=== PATIENT | female | born 1970 | race American Indian/Alaskan Native ===

== ENCOUNTER 2016-10-06 10:33 | Inpatient (IN) | payer MEDICAID ==
[2016-10-06 10:33] VITALS: BMI 22.4
[2016-10-06] MEDS ORDERED: Sodium Chloride 0.9% 1,000 ML IV STA ×2 (11:35→13:48)
[2016-10-06] MEDS ORDERED: Insulin Regular 1 UNITS/0.01 ML ML IVP STA (11:40)
--- NOTE | 2016-10-06 11:49 | ED PDOC ---
Arrival/HPI - General Chief Complaint: High Blood Sugar Time Seen by Provider: 10/06/16 11:26 Historian: Patient - History of Present Illness Narrative History of Present Illness (Text): 10/06/16 11:50 45 y/o female, pmh including dm, c/o out of her DM medications for the past 3 days. Pt. stated that she feels well today, no abdominal pain or fatigue, no dizziness, out of her medication for metformin 1000mg/table bid, glizide 5mg po bid, januvia 50mg/tablet qd. Pt. stated that she feels perfectly well other than feeling fatigue and thirsty with no other medical or psychological complaints, no chest pain or shortness of breath, no palpitation, no night sweat , no other medical or psychological complaints. Past Medical History - Provider Review Nursing Documentation Reviewed: Yes - Past History Past History: No Previous - Infectious Disease Hx of Infectious Diseases: None - Tetanus Immunization Tetanus Immunization: Unknown - Cardiac Hx Cardiac Disorders: No - Pulmonary Hx Respiratory Disorders: No - Neurological Hx Neurological Disorder: No - HEENT Hx HEENT Disorder: No - Renal Hx Renal Disorder: No - Endocrine/Metabolic Hx Endocrine Disorders: Yes Hx Diabetes Mellitus Type 2: Yes (NIDDM) - Hematological/Oncological Hx Blood Disorders: No - Integumentary Hx Dermatological Disorder: No - Musculoskeletal/Rheumatological Hx Musculoskeletal Disorders: No - Gastrointestinal Hx Gastrointestinal Disorders: No - Genitourinary/Gynecological Hx Genitourinary Disorders: No - Psychiatric Hx Psychophysiologic Disorder: No Hx Substance Use: No - Past Surgical History Past Surgical History: No Previous - Surgical History Hx Section: Yes - Anesthesia Hx Anesthesia: Yes Hx Anesthesia Reactions: No Hx Malignant Hyperthermia: No - Suicidal Assessment Feels Threatened In Home Enviroment: No Family/Social History - Physician Review Nursing Documentation Reviewed: Yes Family/Social History: Unknown Family HX Smoking Status: Never Smoked Hx Alcohol Use: No Hx Substance Use: No Hx Substance Use Treatment: No Allergies/Home Meds Allergies/Adverse Reactions: Allergies No Known Allergies Allergy (Verified 10/06/16 11:13) Home Medications: Home Meds Medication Instructions Recorded Confirmed GlipiZIDE [Glucotrol] 5 mg PO BID 10/06/16 10/06/16 MetFORMIN [glucoPHAGE] 1 tab PO BID 10/06/16 10/06/16 Review of Systems - Review of Systems Constitutional: absent: Fatigue, Fevers Eyes: absent: Vision Changes ENT: absent: Hearing Changes Respiratory: absent: SOB, Cough Cardiovascular: absent: Chest Pain Gastrointestinal: absent: Abdominal Pain, Diarrhea, Nausea, Vomiting Musculoskeletal: absent: Arthralgias, Back Pain, Neck Pain, Joint Swelling, Myalgias Skin: absent: Rash, Pruritis, Skin Lesions, Laceration, Abscess, Ulcer Psychiatric: absent: Anxiety, Depression, Suicidal Ideation Physical Exam Vital Signs Reviewed: Yes Vital Signs Temp Pulse Resp BP Pulse Ox 10/06/16 16:01 79 18 116/78 99 10/06/16 16:00 98.7 F 90 20 128/90 100 10/06/16 14:24 89 18 114/75 98 10/06/16 13:25 97 H 18 112/71 98 10/06/16 12:32 100 H 18 115/79 98 10/06/16 11:15 98.6 F 105 H 16 117/82 99 Temperature: Afebrile Blood Pressure: Normal Pulse: Tachycardic Respiratory Rate: Normal Appearance: Positive for: Well-Appearing, Non-Toxic, Comfortable Pain Distress: None Mental Status: Positive for: Alert and Oriented X 3 Finger Stick Blood Glucose: 498 - Systems Exam Head: Present: Atraumatic, Normocephalic Pupils: Present: PERRL Extroacular Muscles: Present: EOMI Conjunctiva: Present: Normal Mouth: Present: Moist Mucous Membranes Neck: Present: Normal Range of Motion Respiratory/Chest: Present: Clear to Auscultation, Good Air Exchange. No: Respiratory Distress, Accessory Muscle Use Cardiovascular: Present: Regular Rate and Rhythm, Normal S1, S2, Other (no pedal edema). No: Murmurs Abdomen: Present: Normal Bowel Sounds. No: Tenderness, Distention, Peritoneal Signs Back: Present: Normal Inspection Upper Extremity: Present: Normal Inspection. No: Cyanosis, Edema Lower Extremity: Present: Normal Inspection. No: Edema Neurological: Present: GCS=15, CN II-XII Intact, Speech Normal, Motor Func Grossly Intact, Gait Normal, Memory Normal Skin: Present: Warm, Dry, Normal Color. No: Rashes Psychiatric: Present: Alert, Oriented x 3, Normal Insight, Normal Concentration Medical Decision Making ED Course and Treatment: 10/06/16 11:41 -labs -IVF/insulin -observe and reassess 10/06/16 14:21 -Labs are non-significant except Na 122, Glucose >500. There is no signs of DKA -EKG: NSR @ 88 BPM, no ST elevation or depression, no T wave inversion, no heart block -Chest x-ray show no active disease -Pt. stated that her previous hgba1c 11.2 which never offer insulin -pt. will need admission for the uncontrolled DM and hyponatremia -I discussed with Dr. Jake Hernadez, discussed about the case/labs and she will admit the patient. -I discussed with DR. Haro about the case/labs, he will put in the admission order. - Lab Interpretations Lab Results: 10/06/16 11:51 10/06/16 11:51 Lab Results 10/06/16 14:49: POC Glucose (mg/dL) 395 H 10/06/16 14:30: Hemoglobin A1c 15.3 H 10/06/16 13:33: POC Glucose (mg/dL) 433 H* 10/06/16 12:53: pO2 48, VBG pH 7.25 L, VBG pCO2 59.0, VBG HCO3 25.9, VBG Total CO2 27.7, VBG O2 Sat (Calc) 81.4 H, VBG Base Excess -2.4 L, VBG Potassium 4.4, Glucose 403 H*, Lactate 3.0 H, FiO2 21.0, Sodium 128.0 L, Chloride 96.0 L, Venous Blood Potassium 4.4 10/06/16 12:49: POC Glucose (mg/dL) 354 H 10/06/16 11:51: Sodium 122 L, Potassium 4.3, Chloride 88 L, Carbon Dioxide 26, Anion Gap 12, BUN 20, Creatinine 0.8, Est GFR ( Amer) > 60, Est GFR (Non- Af Amer) > 60, Random Glucose 642 H*, Calcium 9.2, Total Bilirubin 0.5, AST 20, ALT 37, Alkaline Phosphatase 102, Total Protein 7.2, Albumin 3.9, Globulin 3.3, Albumin/Globulin Ratio 1.2 10/06/16 11:51: WBC 9.4 D, RBC 4.48, Hgb 13.0, Hct 36.5, MCV 81.5, MCH 29.0, MCHC 35.6, RDW 12.7, Plt Count 329, MPV 11.5 H, Gran % 66.7, Lymph % (Auto) 26.6 , [place] % (Auto) 4.8, Eos % (Auto) 1.3 L, Baso % (Auto) 0.6, Gran # 6.23, Lymph # 2.5, [place] # 0.5, Eos # 0.1, Baso # 0.06 10/06/16 11:49: POC Glucose (mg/dL) > 500 H* I have reviewed the lab results: Yes Interpretation: Abnormal lab values (Na 122, Glucose >500) - RAD Interpretation Radiology Orders: 10/06/16 14:20 CHEST PORTABLE [RAD] Stat IMPRESSION: No focal consolidation, significant pleural effusion, or definite pneumothorax identified. Cotton Machine Operator: Radiologist - EKG Interpretation EKG Interpretation (Text): 10/06/16 14:35 NSR @ 88 BPM, no ST elevation or depression, no T wave inversion, no heart block Interpreted by ED Physician: Yes Type: 12 lead EKG - Medication Orders Current Medication Orders: Sodium Chloride (Sodium Chloride 0.9%) 100 mls @ 100 mls/hr IV .Q1H LILY Last Admin: 10/07/16 03:02 Dose: 100 mls/hr Insulin Human Regular (Humulin R High) 0 units SC ACHS LILY PRN Reason: Protocol Last Admin: 10/07/16 08:39 Dose: 12 units Pantoprazole Sodium (Protonix Ec Tab) 40 mg PO 0730 LILY Last Admin: 10/07/16 08:39 Dose: 40 mg Discontinued Medications Sodium Chloride (Sodium Chloride 0.9%) 1,000 mls @ 999 mls/hr IV .Q1H1M STA Stop: 10/06/16 12:35 Last Admin: 10/06/16 11:47 Dose: 999 mls/hr Insulin Human Regular (Humulin R) 8 units IVP STAT STA Stop: 10/06/16 11:41 Last Admin: 10/06/16 11:49 Dose: 8 units Comments: FS 500 Insulin Human Regular (Humulin R High) 0 units SC ACHS LILY PRN Reason: Protocol Insulin Human Regular (Humulin R) 3 units SC ONCE ONE Stop: 10/07/16 02:54 Last Admin: 10/07/16 03:01 Dose: 3 units - PA / BAR MACHINE OPERATOR MULTIPLE SPINDLE / Resident Statement MD/DO has reviewed & agrees with the documentation as recorded. Disposition/Present on Arrival - Present on Arrival Any Indicators Present on Arrival: No History of DVT/PE: No History of Uncontrolled Diabetes: No Urinary Catheter: No History of Decub. Ulcer: No History Surgical Site Infection Following: None - Disposition Have Diagnosis and Disposition been Completed?: Yes Diagnosis: Hyperglycemia due to type 2 diabetes mellitus, Encounter for medication refill , Hyponatremia Disposition: HOSPITALIZED Disposition Time: 14:23 Patient Plan: Admission Patient Problems: Current Active Problems Problem Status Onset Encounter for medication refill Acute Hyperglycemia due to type 2 diabetes mellitus Acute Hyponatremia Acute Condition: GOOD
[2016-10-06 11:52] LABS: ADD MANUAL DIFF? NO
[2016-10-06 12:08] LABS: ALB/GLOB RATIO 1.2 (1.1-1.8); ALKALINE PHOSPHATASE 102 U/L (38-133); ALT/SGPT 37 U/L (7-56); AST/SGOT 20 U/L (15-39); BILIRUBIN,TOTAL 0.5 mg/dL (0.2-1.3); BLOOD UREA NITROGEN 20 mg/dL (7-21); CALCIUM 9.2 mg/dL (8.4-10.5); CARBON DIOXIDE 26 mmol/L (21-33); CHLORIDE 88 mmol/L (95-110); GFR AFRICAN-AMERICAN > 60; POTASSIUM 4.3 mmol/L (3.6-5.0); SODIUM 122 mmol/L (132-148); TOTAL PROTEIN 7.2 g/dL (5.8-8.3)
[2016-10-06 12:27] LABS: GLUCOSE,RANDOM 642 mg/dL (70-110)
[2016-10-06 12:41] LABS: BASO # 0.06 K/mm3 (0.0-2.0); BASO % 0.6 % (0.0-3.0); EOS # 0.1 (0.0-0.7); EOS % 1.3 % (1.5-5.0); GRAN # 6.23 (1.4-6.5); GRAN % 66.7 % (50.0-68.0); HEMATOCRIT 36.5 % (36.0-48.0); LYMPH # 2.5 (1.2-3.4); LYMPH % 26.6 % (22.0-35.0); MEAN CELL VOLUME 81.5 fL (80.0-105.0); MEAN CORPUSCULAR HGB CONC 35.6 g/dl (31.0-37.0); MEAN PLATELET VOLUME 11.5 fl (7.0-11.0); MONO # 0.5 (0.1-0.6); MONO % 4.8 % (1.0-6.0); PLATELET COUNT 329 10^3/uL (120.0-450.0); RED CELL DISTRIBUTION WIDTH 12.7 % (11.5-14.5); WHITE BLOOD COUNT 9.4 10^3/ul (4.5-11.0)
[2016-10-06 12:56] LABS: VENOUS BLOOD GAS BASE EXCESS -2.4 mmol/L (0.0-2.0); VENOUS BLOOD PH 7.25 (7.32-7.43)
--- NOTE | 2016-10-06 15:18 | CP.PCM.HP ---
<Zhnag Duran - Last Filed: 10/06/16 20:20> History of Present Illness - History of Present Illness History of Present Illness: 45F with pmh of DM2 presented c/o fatigue and mild numbness/tingling of extremities 2/2 to hyperglycemia. Pt. ran out of her meds 3 days ago. Pt. recently lost insurance and trying to get new insurance and was unable to acquire new medications. Pt. has no other complaints and denies chest pain, difficulty breathing, N/V/D/C, any GI/ symptoms, or back pain. PMD:previously Dr. Genoveva Hill PMH: DM, Gestational DM in 1999 PSH: in 1999 FH: sig for DM and HTN SH: lives with her children works at [employer], [employer], and [employer] denies recent travel Tob: denies Alc: socially Drug: bora All: NKDA Meds: Metformin 1000mg BID Glipizide 5mg BID Januvia 50mg QID Present on Admission - Present on Admission Any Indicators Present on Admission: Yes History of DVT/PE: No History of Uncontrolled Diabetes: Yes Urinary Catheter: No Decubitus Ulcer Present: No Review of Systems - Constitutional Constitutional: absent: Anorexia, Chills, Daytime Sleepiness, Fever, Headache - EENT Eyes: Change in Vision (mild changes when she is hyperglycemic) Ears: absent: Decreased Hearing, Ear Pain Nose/Mouth/Throat: absent: Dysphagia, Sore Throat, Neck Pain - Cardiovascular Cardiovascular: absent: Chest Pain, Chest Pain at Rest, Chest Pain with Activity , Dyspnea, Edema, Irregular Heart Rhythm, Pain Radiating to Arm/Neck/Jaw, Palpitations, Pedal Edema, Radiating Pain, Syncope - Respiratory Respiratory: Cough (mild unproductive). absent: Dyspnea - Gastrointestinal Gastrointestinal: absent: Abdominal Pain, Constipation, Diarrhea, Heartburn, Nausea, Vomiting - Genitourinary Genitourinary: absent: Dysuria, Flank Pain, Hematuria, Pyuria, Nocturia, Urinary Incontinence - Musculoskeletal Musculoskeletal: Numbness, Tingling. absent: Abnormal Gait, Arthralgias, Back Pain, Joint Swelling - Integumentary Integumentary: Rash - Neurological Neurological: Numbness, Tingling. absent: Dizziness, Focal Weakness, Headaches , Syncope - Psychiatric Psychiatric: absent: Behavioral Changes, Confusion, Depression, Irritability - Endocrine Endocrine: Fatigue. absent: Cold Intolorance, Heat Intolorance, Palpitations, Polydipsia, Polyphagia, Polyuria Past Patient History - Infectious Disease Hx of Infectious Diseases: None - Tetanus Immunizations Tetanus Immunization: Unknown - Past Social History Smoking Status: Never Smoked Chewing Tobacco Use: No Cigar Use: No Alcohol: Social Drugs: Denies - CARDIAC Hx Cardiac Disorders: No - PULMONARY Hx Respiratory Disorders: No - NEUROLOGICAL Hx Neurological Disorder: No - HEENT Hx HEENT Problems: No - RENAL Hx Chronic Kidney Disease: No - ENDOCRINE/METABOLIC Hx Endocrine Disorders: Yes Hx Diabetes Mellitus Type 2: Yes (NIDDM) - HEMATOLOGICAL/ONCOLOGICAL Hx Blood Disorders: No - INTEGUMENTARY Hx Dermatological Problems: No - MUSCULOSKELETAL/RHEUMATOLOGICAL Hx Musculoskeletal Disorders: No - GASTROINTESTINAL Hx Gastrointestinal Disorders: No - GENITOURINARY/GYNECOLOGICAL Hx Genitourinary Disorders: No - PSYCHIATRIC Hx Psychophysiologic Disorder: No Hx Substance Use: No - SURGICAL HISTORY Hx Section: Yes - ANESTHESIA Hx Anesthesia: Yes Hx Anesthesia Reactions: No Hx Malignant Hyperthermia: No Meds Home Medications: Home Medication List Medication Instructions Recorded Confirmed Type GlipiZIDE [Glucotrol] 5 mg PO BID #28 10/08/16 Rx Insulin Human NPH/Reg [humulin 5 units SC Q12 14 Days 10/08/16 Rx 70/30 70 U/Ml-30 U/Ml 10 Ml] MetFORMIN [glucoPHAGE] 1 tab PO BID #28 10/08/16 Rx SITagliptin [Januvia] 50 mg PO DAILY #14 tab 10/08/16 Rx Allergies/Adverse Reactions: Allergies Allergy/AdvReac Type Severity Reaction Status Date / Time No Known Allergies Allergy Verified 10/06/16 11:13 Physical Exam - Constitutional Appears: Non-toxic, No Acute Distress - Head Exam Head Exam: ATRAUMATIC, NORMOCEPHALIC - Eye Exam Eye Exam: EOMI - ENT Exam ENT Exam: Mucous Membranes Moist - Neck Exam Neck exam: Positive for: Full Rom. Negative for: Lymphadenopathy, Thyromegaly - Respiratory Exam Respiratory Exam: Clear to Auscultation Bilateral, NORMAL BREATHING PATTERN. absent: Rhonchi, Wheezes - Cardiovascular Exam Cardiovascular Exam: REGULAR RHYTHM, RRR, +S1, +S2. absent: JVD - GI/Abdominal Exam GI & Abdominal Exam: Normal Bowel Sounds, Soft. absent: Tenderness - Extremities Exam Extremities exam: Positive for: normal inspection - Back Exam Back exam: NORMAL INSPECTION - Neurological Exam Neurological exam: Alert, CN II-XII Intact, Normal Gait, Oriented x3, Reflexes Normal - Psychiatric Exam Psychiatric exam: Normal Affect, Normal Mood - Skin Skin Exam: Dry, Intact, Normal Color, Warm Results - Vital Signs Recent Vital Signs: Last Vital Signs Temp 98.6 F 10/06/16 11:15 Pulse 89 10/06/16 14:24 Resp 18 10/06/16 14:24 BP 114/75 10/06/16 14:24 Pulse Ox 98 10/06/16 14:24 - Labs Result Diagrams: 10/06/16 11:51 10/06/16 11:51 Labs: Laboratory Results - last 24 hr 10/06/16 10/06/16 10/06/16 11:49 11:51 11:51 WBC 9.4 D RBC 4.48 Hgb 13.0 Hct 36.5 MCV 81.5 MCH 29.0 MCHC 35.6 RDW 12.7 Plt Count 329 MPV 11.5 H Gran % 66.7 Lymph % (Auto) 26.6 [place] % (Auto) 4.8 Eos % (Auto) 1.3 L Baso % (Auto) 0.6 Gran # 6.23 Lymph # 2.5 [place] # 0.5 Eos # 0.1 Baso # 0.06 pO2 VBG pH VBG pCO2 VBG HCO3 VBG Total CO2 VBG O2 Sat (Calc) VBG Base Excess VBG Potassium Glucose Lactate FiO2 Sodium 122 L Potassium 4.3 Chloride 88 L Carbon Dioxide 26 Anion Gap 12 BUN 20 Creatinine 0.8 Est GFR ( Amer) > 60 Est GFR (Non-Af Amer) > 60 POC Glucose (mg/dL) > 500 H* Random Glucose 642 H* Calcium 9.2 Total Bilirubin 0.5 AST 20 ALT 37 Alkaline Phosphatase 102 Total Protein 7.2 Albumin 3.9 Globulin 3.3 Albumin/Globulin Ratio 1.2 Venous Blood Potassium 10/06/16 10/06/16 10/06/16 12:49 12:53 13:33 WBC RBC Hgb Hct MCV MCH MCHC RDW Plt Count MPV Gran % Lymph % (Auto) [place] % (Auto) Eos % (Auto) Baso % (Auto) Gran # Lymph # [place] # Eos # Baso # pO2 48 VBG pH 7.25 L VBG pCO2 59.0 VBG HCO3 25.9 VBG Total CO2 27.7 VBG O2 Sat (Calc) 81.4 H VBG Base Excess -2.4 L VBG Potassium 4.4 Glucose 403 H* Lactate 3.0 H FiO2 21.0 Sodium 128.0 L Potassium Chloride 96.0 L Carbon Dioxide Anion Gap BUN Creatinine Est GFR ( Amer) Est GFR (Non-Af Amer) POC Glucose (mg/dL) 354 H 433 H* Random Glucose Calcium Total Bilirubin AST ALT Alkaline Phosphatase Total Protein Albumin Globulin Albumin/Globulin Ratio Venous Blood Potassium 4.4 10/06/16 14:49 WBC RBC Hgb Hct MCV MCH MCHC RDW Plt Count MPV Gran % Lymph % (Auto) [place] % (Auto) Eos % (Auto) Baso % (Auto) Gran # Lymph # [place] # Eos # Baso # pO2 VBG pH VBG pCO2 VBG HCO3 VBG Total CO2 VBG O2 Sat (Calc) VBG Base Excess VBG Potassium Glucose Lactate FiO2 Sodium Potassium Chloride Carbon Dioxide Anion Gap BUN Creatinine Est GFR ( Amer) Est GFR (Non-Af Amer) POC Glucose (mg/dL) 395 H Random Glucose Calcium Total Bilirubin AST ALT Alkaline Phosphatase Total Protein Albumin Globulin Albumin/Globulin Ratio Venous Blood Potassium Assessment & Plan - Assessment and Plan (Free Text) Assessment: 45F with fatigue 2/2 hyperglycemia. Plan: Hyperglycemia -ISS High -will switch to Humalin tomorrow -HgA1c -IV fluids 100mls/hr -Diabetic Education -received 8u in the ED and 1 L of NS -GAP WNL -Corrected Na is 131 -VBG -P02 48 -pH 7.25 -PCO2 59 -HCO3 25.9 -EKG NSR @[address] changes, needs official read -CXR No Active Disease, no cardiomegaly, needs official read -Diabetic Diet PPX -DVT AE Hose -GI Protonix 40mg daily -Activity as tolerated - Date & Time Date: 10/06/16 Time: 04:00 <Gonsalo Hernadez B - Last Filed: 10/08/16 13:53> Results - Vital Signs Recent Vital Signs: Last Vital Signs Temp 97.8 F 10/07/16 08:43 Pulse 85 10/07/16 08:43 Resp 20 10/07/16 08:43 BP 126/88 10/07/16 08:43 Pulse Ox 100 10/07/16 08:43 - Labs Result Diagrams: 10/08/16 07:30 10/08/16 07:30 Labs: Laboratory Results - last 24 hr 10/06/16 10/06/16 10/06/16 16:50 19:09 21:45 WBC RBC Hgb Hct MCV MCH MCHC RDW Plt Count MPV Gran % Lymph % (Auto) [place] % (Auto) Eos % (Auto) Baso % (Auto) Gran # Lymph # [place] # Eos # Baso # pO2 19 L VBG pH 7.34 VBG pCO2 56.0 VBG HCO3 30.2 H VBG Total CO2 31.9 H VBG O2 Sat (Calc) 36.2 L VBG Base Excess 3.3 H VBG Potassium 4.1 Sodium 131.0 L Chloride 102.0 Glucose 371 H Lactate 1.6 FiO2 21.0 Potassium Carbon Dioxide Anion Gap BUN Creatinine Est GFR ( Amer) Est GFR (Non-Af Amer) POC Glucose (mg/dL) 344 H 283 H Random Glucose Calcium Total Bilirubin AST ALT Alkaline Phosphatase Total Protein Albumin Globulin Albumin/Globulin Ratio Venous Blood Potassium 4.1 10/07/16 10/07/16 10/07/16 02:41 07:28 08:02 WBC 7.2 D RBC 4.03 Hgb 11.5 L Hct 33.3 L MCV 82.6 MCH 28.5 MCHC 34.5 RDW 12.8 Plt Count 302 MPV 11.2 H Gran % 55.3 Lymph % (Auto) 35.9 H [place] % (Auto) 4.8 Eos % (Auto) 3.3 Baso % (Auto) 0.7 Gran # 3.99 Lymph # 2.6 [place] # 0.4 Eos # 0.2 Baso # 0.05 pO2 VBG pH VBG pCO2 VBG HCO3 VBG Total CO2 VBG O2 Sat (Calc) VBG Base Excess VBG Potassium Sodium Chloride Glucose Lactate FiO2 Potassium Carbon Dioxide Anion Gap BUN Creatinine Est GFR ( Amer) Est GFR (Non-Af Amer) POC Glucose (mg/dL) 361 H 362 H Random Glucose Calcium Total Bilirubin AST ALT Alkaline Phosphatase Total Protein Albumin Globulin Albumin/Globulin Ratio Venous Blood Potassium 10/07/16 10/07/16 08:02 12:02 WBC RBC Hgb Hct MCV MCH MCHC RDW Plt Count MPV Gran % Lymph % (Auto) [place] % (Auto) Eos % (Auto) Baso % (Auto) Gran # Lymph # [place] # Eos # Baso # pO2 VBG pH VBG pCO2 VBG HCO3 VBG Total CO2 VBG O2 Sat (Calc) VBG Base Excess VBG Potassium Sodium 134 Chloride 104 Glucose Lactate FiO2 Potassium 4.8 Carbon Dioxide 26 Anion Gap 9 L BUN 18 Creatinine 0.8 Est GFR ( Amer) > 60 Est GFR (Non-Af Amer) > 60 POC Glucose (mg/dL) 342 H Random Glucose 359 H* D Calcium 8.4 Total Bilirubin 0.3 AST 18 ALT 30 Alkaline Phosphatase 74 Total Protein 5.9 Albumin 2.9 L Globulin 2.9 Albumin/Globulin Ratio 1.0 L Venous Blood Potassium Attending/Attestation - Attestation I have personally seen and examined this patient.: Yes I have fully participated in the care of the patient.: Yes I have reviewed all pertinent clinical information: Yes Notes (Text): I have seen and examined patient at bedside. Agree with the above note with the following additions/ exceptions: This is 45 year old female with history of DM ( unknown if its type 1 or 2) on oral hypoglycemics came for evaluation of fatigue , numbness, tingling and found to have hyperglycemia. Patient states that she has lost her insurance and cannot afford to buy insulin or see the doctor. At home she was taking metformin, januvia and glipizide. Patient states that her HBA1C at doctor's office was 11. Patient will be admitted for diabetic education and insulin teaching. Will start high dose ISS. Will consult customer experience specialist. Will check hba1c now. Start IVF. Upon discharge patient will follow up in [facility] clinic. Dr Gonsalo Hernadez
[2016-10-06] MEDS: Sodium Chloride 0.9% 100 ML IV SCH ×2 (16:15→18:04)
[2016-10-06] MEDS ORDERED: Insulin Reg-HIGH-Coverage SC SCH (16:30)
[2016-10-06] MEDS: Insulin Reg-HIGH-Coverage SC SCH ×2 (18:03→22:00)
[2016-10-06 19:26] LABS: VENOUS BLOOD GAS BASE EXCESS 3.3 mmol/L (0.0-2.0); VENOUS BLOOD PH 7.34 (7.32-7.43)
[2016-10-07] MEDS ORDERED: Insulin Regular 1 UNITS/0.01 ML ML SC ONE (02:53)
[2016-10-07] MEDS: Sodium Chloride 0.9% 100 ML IV SCH ×2 (03:02→17:54)
[2016-10-07 08:04] LABS: ADD MANUAL DIFF? NO
[2016-10-07 08:08] LABS: BASO # 0.05 K/mm3 (0.0-2.0); BASO % 0.7 % (0.0-3.0); EOS # 0.2 (0.0-0.7); EOS % 3.3 % (1.5-5.0); GRAN # 3.99 (1.4-6.5); GRAN % 55.3 % (50.0-68.0); HEMATOCRIT 33.3 % (36.0-48.0); LYMPH # 2.6 (1.2-3.4); LYMPH % 35.9 % (22.0-35.0); MEAN CELL VOLUME 82.6 fL (80.0-105.0); MEAN CORPUSCULAR HEMOGLOBIN 28.5 pg (25.0-35.0); MEAN CORPUSCULAR HGB CONC 34.5 g/dl (31.0-37.0); MEAN PLATELET VOLUME 11.2 fl (7.0-11.0); MONO # 0.4 (0.1-0.6); MONO % 4.8 % (1.0-6.0); PLATELET COUNT 302 10^3/uL (120.0-450.0); RED CELL DISTRIBUTION WIDTH 12.8 % (11.5-14.5); WHITE BLOOD COUNT 7.2 10^3/ul (4.5-11.0)
[2016-10-07 08:22] LABS: ALKALINE PHOSPHATASE 74 U/L (38-133); ALT/SGPT 30 U/L (7-56); AST/SGOT 18 U/L (15-39); BILIRUBIN,TOTAL 0.3 mg/dL (0.2-1.3); BLOOD UREA NITROGEN 18 mg/dL (7-21); CALCIUM 8.4 mg/dL (8.4-10.5); CARBON DIOXIDE 26 mmol/L (21-33); CHLORIDE 104 mmol/L (98-107); GFR AFRICAN-AMERICAN > 60; POTASSIUM 4.8 mmol/L (3.6-5.0); SODIUM 134 mmol/L (132-148); TOTAL PROTEIN 5.9 g/dL (5.8-8.3)
--- NOTE | 2016-10-07 08:38 | RAD ---
HISTORY: medical clearance, admission COMPARISON: Chest x-ray performed 07/30/15 TECHNIQUE: Chest, one view. FINDINGS: LUNGS: No focal consolidation. Please note that chest x-ray has limited sensitivity for the detection of pulmonary masses. PLEURA: No significant pleural effusion identified. No definite pneumothorax . CARDIOVASCULAR: The cardiomediastinal silhouette appears within normal limits of size. OSSEOUS STRUCTURES: No acute osseous abnormality identified. VISUALIZED UPPER ABDOMEN: Unremarkable. OTHER FINDINGS: None. IMPRESSION: No focal consolidation, significant pleural effusion, or definite pneumothorax identified.
[2016-10-07] MEDS: Insulin Reg-HIGH-Coverage SC SCH ×4 (08:39→22:18)
[2016-10-07] MEDS: Pantoprazole 40 mg EC Tab PO SCH (08:39)
[2016-10-07 08:44] LABS: GLUCOSE,RANDOM 359 mg/dL (70-110)
--- NOTE | 2016-10-07 17:58 | CP.PCM.PN ---
<Zhang Duran - Last Filed: 10/07/16 23:28> Subjective - Date & Time of Evaluation Date of Evaluation: 10/07/16 Time of Evaluation: 07:10 - Subjective Subjective: 45F with pmh of DM2 presented c/o fatigue and mild numbness/tingling of extremities 2/2 to hyperglycemia. Today, pt. is in NAD and would like to go home. She has no complaints and denies chest pain, difficulty breathing, N/V/D/C , any GI/ symptoms, or back pain. Objective - Vital Signs/Intake and Output Vital Signs (last 24 hours): Temp Pulse Resp BP Pulse Ox 97.8 F 85 20 126/88 100 10/07/16 08:43 10/07/16 08:43 10/07/16 08:43 10/07/16 08:43 10/07/16 08:43 Intake and Output: 10/07/16 10/07/16 06:59 18:59 Intake Total 800 Balance 800 - Medications Medications: Current Medications Sodium Chloride (Sodium Chloride 0.9%) 100 mls @ 100 mls/hr IV .Q1H [facility] [place] Last Admin: 10/07/16 17:54 Dose: 100 mls/hr Insulin Human Regular (Humulin R High) 0 units SC ACHS LILY PRN Reason: Protocol Last Admin: 10/07/16 17:22 Dose: 10 units Pantoprazole Sodium (Protonix Ec Tab) 40 mg PO 0730 [facility] Last Admin: 10/07/16 08:39 Dose: 40 mg - Labs Labs: 10/07/16 08:02 10/07/16 08:02 - Constitutional Appears: Non-toxic, No Acute Distress - Head Exam Head Exam: ATRAUMATIC, NORMOCEPHALIC - Eye Exam Eye Exam: EOMI - ENT Exam ENT Exam: Mucous Membranes Moist, Normal Exam - Neck Exam Neck Exam: Full ROM, Normal Inspection. absent: Thyromegaly - Respiratory Exam Respiratory Exam: Clear to Ausculation Bilateral, NORMAL BREATHING PATTERN - Cardiovascular Exam Cardiovascular Exam: REGULAR RHYTHM, +S1, +S2. absent: Murmur - GI/Abdominal Exam GI & Abdominal Exam: Soft, Normal Bowel Sounds. absent: Tenderness - Extremities Exam Extremities Exam: Full ROM, Normal Capillary Refill, Normal Inspection. absent : Joint Swelling, Pedal Edema - Back Exam Back Exam: NORMAL INSPECTION - Neurological Exam Neurological Exam: Alert, Awake, CN II-XII Intact, Normal Gait, Oriented x3 - Psychiatric Exam Psychiatric exam: Normal Affect, Normal Mood - Skin Skin Exam: Dry, Intact, Normal Color, Warm Assessment and Plan - Assessment and Plan (Free Text) Assessment: 45F with fatigue 2/2 hyperglycemia. Plan: Hyperglycemia -ISS High -started Humalin 5q12 -HgA1c -IV fluids 100mls/hr -Diabetic Education -received 8u in the ED and 1 L of NS -GAP WNL -Corrected Na is 131 -VBG -P02 48 -pH 7.25 -PCO2 59 -HCO3 25.9 -EKG NSR @[address] changes, needs official read -CXR No Active Disease, no cardiomegaly, needs official read -Diabetic Diet PPX -DVT AE Hose -GI Protonix 40mg daily -Activity as tolerated <Gonsalo Hernadez - Last Filed: 10/09/16 10:09> Objective - Vital Signs/Intake and Output Vital Signs (last 24 hours): Temp Pulse Resp BP Pulse Ox 98.5 F 84 18 160/99 H 99 10/08/16 07:59 10/08/16 07:59 10/08/16 07:59 10/08/16 07:59 10/08/16 07:59 - Labs Labs: 10/08/16 07:30 10/08/16 07:30 Attending/Attestation - Attestation I have personally seen and examined this patient.: Yes I have fully participated in the care of the patient.: Yes I have reviewed all pertinent clinical information, including history, physical exam and plan: Yes Notes (Text): I have seen and examined patient at bedside. Agree with the above note with the following additions/ exceptions: This is 45 year old female with history of DM ( unknown if its type 1 or 2) on oral hypoglycemics came for evaluation of fatigue , numbness, tingling and found to have hyperglycemia. Patient states that she has lost her insurance and cannot afford to buy insulin or see the doctor. At home she was taking metformin, januvia and glipizide. Patient states that her HBA1C at doctor's office was 11. Patient has been getting diabetic education and insulin teaching. Will start humilin 70/30 today. Patient is still not sure if she will be able to give herself insulin. She does not have primary doctor due to lack of insurance. Discussed with combat systems engineer if we can provide some samples. HBA1C is 15. Upon discharge patient will follow up in [facility] clinic. Dr Gonsalo Hernadez
--- NOTE | 2016-10-07 18:21 | CARD ---
APPROVED REPORT EKG Measurement Heart [id number] <Conclusion> Normal sinus rhythm Normal ECG
[2016-10-07 18:35] VITALS: O2SAT 99
[2016-10-07] MEDS: Insulin Human NPH/Reg 70/30 Vial(3 ml) SC SCH (23:38)
[2016-10-08] MEDS: Sodium Chloride 0.9% 100 ML IV SCH (02:23)
[2016-10-08 08:00] VITALS: BP 160/99; PULSE 84; RESP 18; TEMP 98.5
[2016-10-08 08:03] LABS: ADD MANUAL DIFF? NO
[2016-10-08 08:11] LABS: BASO # 0.05 K/mm3 (0.0-2.0); BASO % 0.7 % (0.0-3.0); EOS # 0.3 (0.0-0.7); EOS % 3.9 % (1.5-5.0); GRAN # 4.17 (1.4-6.5); GRAN % 58.8 % (50.0-68.0); HEMATOCRIT 32.8 % (36.0-48.0); LYMPH # 2.2 (1.2-3.4); LYMPH % 30.5 % (22.0-35.0); MEAN CORPUSCULAR HEMOGLOBIN 28.6 pg (25.0-35.0); MEAN CORPUSCULAR HGB CONC 34.5 g/dl (31.0-37.0); MEAN PLATELET VOLUME 11.2 fl (7.0-11.0); MONO # 0.4 (0.1-0.6); MONO % 6.1 % (1.0-6.0); PLATELET COUNT 292 10^3/uL (120.0-450.0); WHITE BLOOD COUNT 7.1 10^3/ul (4.5-11.0)
[2016-10-08 08:25] LABS: ALB/GLOB RATIO 0.9 (1.1-1.8); ALKALINE PHOSPHATASE 73 U/L (38-133); ALT/SGPT 34 U/L (7-56); AST/SGOT 27 U/L (15-39); BILIRUBIN,TOTAL 0.2 mg/dL (0.2-1.3); BLOOD UREA NITROGEN 14 mg/dL (7-21); CALCIUM 8.3 mg/dL (8.4-10.5); CARBON DIOXIDE 23 mmol/L (21-33); CHLORIDE 104 mmol/L (98-107); GFR AFRICAN-AMERICAN > 60; POTASSIUM 4.1 mmol/L (3.6-5.0); SODIUM 133 mmol/L (132-148); TOTAL PROTEIN 5.9 g/dL (5.8-8.3)
[2016-10-08] MEDS: Insulin Reg-HIGH-Coverage SC SCH ×2 (08:37→12:59)
[2016-10-08] MEDS: Pantoprazole 40 mg EC Tab PO SCH (08:37)
[2016-10-08 08:44] LABS: GLUCOSE,RANDOM 316 mg/dL (70-110)
[2016-10-08] MEDS: Insulin Human NPH/Reg 70/30 Vial(3 ml) SC SCH (10:31)
--- NOTE | 2016-10-08 16:32 | CP.PCM.DIS ---
<Zhang Duran - Last Filed: 10/08/16 16:32> Provider - Provider Date of Admission: 10/06/16 15:50 Attending physician: Gonsalo Hernadez MD Primary care physician: Genoveva Hill MD Time Spent in preparation of Discharge (in minutes): 35 Hospital Course - Lab Results Lab Results: Most Recent Lab Values WBC 7.1 10^3/ul (4.5-11.0) 10/08/16 07:30 RBC 3.95 10^6/uL (3.5-6.1) 10/08/16 07:30 Hgb 11.3 gm/dL (12.0-16.0) L 10/08/16 07:30 Hct 32.8 % (36.0-48.0) L 10/08/16 07:30 MCV 83.0 fL (80.0-105.0) 10/08/16 07:30 MCH 28.6 pg (25.0-35.0) 10/08/16 07:30 MCHC 34.5 g/dl (31.0-37.0) 10/08/16 07:30 RDW 13.0 % (11.5-14.5) 10/08/16 07:30 Plt Count 292 10^3/uL (120.0-450.0) 10/08/16 07:30 MPV 11.2 fl (7.0-11.0) H 10/08/16 07:30 Gran % 58.8 % (50.0-68.0) 10/08/16 07:30 Lymph % (Auto) 30.5 % (22.0-35.0) 10/08/16 07:30 Maury % (Auto) 6.1 % (1.0-6.0) H 10/08/16 07:30 Eos % (Auto) 3.9 % (1.5-5.0) 10/08/16 07:30 Baso % (Auto) 0.7 % (0.0-3.0) 10/08/16 07:30 Gran # 4.17 (1.4-6.5) 10/08/16 07:30 Lymph # 2.2 (1.2-3.4) 10/08/16 07:30 Maury # 0.4 (0.1-0.6) 10/08/16 07:30 Eos # 0.3 (0.0-0.7) 10/08/16 07:30 Baso # 0.05 K/mm3 (0.0-2.0) 10/08/16 07:30 pO2 19 mm/Hg (30-55) L 10/06/16 19:09 VBG pH 7.34 (7.32-7.43) 10/06/16 19:09 VBG pCO2 56.0 (40-60) 10/06/16 19:09 VBG HCO3 30.2 mmol/l (21-28) H 10/06/16 19:09 VBG Total CO2 31.9 mmol.L (22-28) H 10/06/16 19:09 VBG O2 Sat (Calc) 36.2 % (40-65) L 10/06/16 19:09 VBG Base Excess 3.3 mmol/L (0.0-2.0) H 10/06/16 19:09 VBG Potassium 4.1 mmol/L (3.6-5.2) 10/06/16 19:09 Sodium 131.0 mmol/L (132-148) L 10/06/16 19:09 Chloride 102.0 mmol/L (98-107) 10/06/16 19:09 Glucose 371 mg/dl (65-105) H 10/06/16 19:09 Lactate 1.6 mmol/L (0.7-2.1) 10/06/16 19:09 FiO2 21.0 % 10/06/16 19:09 Sodium 133 mmol/L (132-148) 10/08/16 07:30 Potassium 4.1 mmol/L (3.6-5.0) 10/08/16 07:30 Chloride 104 mmol/L (98-107) 10/08/16 07:30 Carbon Dioxide 23 mmol/L (21-33) 10/08/16 07:30 Anion Gap 10 (10-20) 10/08/16 07:30 BUN 14 mg/dL (7-21) 10/08/16 07:30 Creatinine 0.7 mg/dL (0.5-1.4) 10/08/16 07:30 Est GFR ( Amer) > 60 10/08/16 07:30 Est GFR (Non-Af Amer) > 60 10/08/16 07:30 POC Glucose (mg/dL) 338 mg/dL (65-110) H 10/08/16 07:25 Random Glucose 316 mg/dL (70-110) H* 10/08/16 07:30 Hemoglobin A1c 15.3 % (4.2-6.5) H 10/06/16 14:30 Calcium 8.3 mg/dL (8.4-10.5) L 10/08/16 07:30 Total Bilirubin 0.2 mg/dL (0.2-1.3) 10/08/16 07:30 AST 27 U/L (15-39) 10/08/16 07:30 ALT 34 U/L (7-56) 10/08/16 07:30 Alkaline Phosphatase 73 U/L (38-133) 10/08/16 07:30 Total Protein 5.9 g/dL (5.8-8.3) 10/08/16 07:30 Albumin 2.8 g/dL (3.0-4.8) L 10/08/16 07:30 Globulin 3.1 gm/dL 10/08/16 07:30 Albumin/Globulin Ratio 0.9 (1.1-1.8) L 10/08/16 07:30 Venous Blood Potassium 4.1 mmol/L (3.6-5.2) 10/06/16 19:09 - Date & Time of H&P Date of H&P: 10/08/16 Time of H&P: 08:00 Discharge Exam - Head Exam Head Exam: ATRAUMATIC, NORMOCEPHALIC Discharge Plan - Discharge Medications Prescriptions: GlipiZIDE [Glucotrol] 5 mg PO BID #28 Insulin Human NPH/Reg [humulin 70/30 70 U/Ml-30 U/Ml 10 Ml] 5 units SC Q12 14 Days MetFORMIN [glucoPHAGE] 1 tab PO BID #28 SITagliptin [Januvia] 50 mg PO DAILY #14 tab - Follow Up Plan Condition: GOOD Disposition: HOME/ ROUTINE Instructions: Meal Planning with Diabetes Exchanges (DC), Diabetic Hyperglycemia (DC) Additional Instructions: Patient is medically stable for discharge. Please follow up with Dr. Love in regards to controlling your diabetes within 1 week. Please take Humalin Insulin 70/30 5 units every 12 hours. Please follow up with your primary care doctor within 1 week. Thank you for allowing us to take part in your care. Referrals: Shahram Love MD [Staff Provider] - Genoveva Hill MD [Primary Care Provider] - <Gonsalo Hernadez - Last Filed: 10/09/16 10:15> Provider - Provider Date of Admission: 10/06/16 15:50 Attending physician: Gonsalo Hernadez MD Primary care physician: Genoveva Hill MD Hospital Course - Lab Results Lab Results: Most Recent Lab Values WBC 7.1 10^3/ul (4.5-11.0) 10/08/16 07:30 RBC 3.95 10^6/uL (3.5-6.1) 10/08/16 07:30 Hgb 11.3 gm/dL (12.0-16.0) L 10/08/16 07:30 Hct 32.8 % (36.0-48.0) L 10/08/16 07:30 MCV 83.0 fL (80.0-105.0) 10/08/16 07:30 MCH 28.6 pg (25.0-35.0) 10/08/16 07:30 MCHC 34.5 g/dl (31.0-37.0) 10/08/16 07:30 RDW 13.0 % (11.5-14.5) 10/08/16 07:30 Plt Count 292 10^3/uL (120.0-450.0) 10/08/16 07:30 MPV 11.2 fl (7.0-11.0) H 10/08/16 07:30 Gran % 58.8 % (50.0-68.0) 10/08/16 07:30 Lymph % (Auto) 30.5 % (22.0-35.0) 10/08/16 07:30 Maury % (Auto) 6.1 % (1.0-6.0) H 10/08/16 07:30 Eos % (Auto) 3.9 % (1.5-5.0) 10/08/16 07:30 Baso % (Auto) 0.7 % (0.0-3.0) 10/08/16 07:30 Gran # 4.17 (1.4-6.5) 10/08/16 07:30 Lymph # 2.2 (1.2-3.4) 10/08/16 07:30 Maury # 0.4 (0.1-0.6) 10/08/16 07:30 Eos # 0.3 (0.0-0.7) 10/08/16 07:30 Baso # 0.05 K/mm3 (0.0-2.0) 10/08/16 07:30 pO2 19 mm/Hg (30-55) L 10/06/16 19:09 VBG pH 7.34 (7.32-7.43) 10/06/16 19:09 VBG pCO2 56.0 (40-60) 10/06/16 19:09 VBG HCO3 30.2 mmol/l (21-28) H 10/06/16 19:09 VBG Total CO2 31.9 mmol.L (22-28) H 10/06/16 19:09 VBG O2 Sat (Calc) 36.2 % (40-65) L 10/06/16 19:09 VBG Base Excess 3.3 mmol/L (0.0-2.0) H 10/06/16 19:09 VBG Potassium 4.1 mmol/L (3.6-5.2) 10/06/16 19:09 Sodium 131.0 mmol/L (132-148) L 10/06/16 19:09 Chloride 102.0 mmol/L (98-107) 10/06/16 19:09 Glucose 371 mg/dl (65-105) H 10/06/16 19:09 Lactate 1.6 mmol/L (0.7-2.1) 10/06/16 19:09 FiO2 21.0 % 10/06/16 19:09 Sodium 133 mmol/L (132-148) 10/08/16 07:30 Potassium 4.1 mmol/L (3.6-5.0) 10/08/16 07:30 Chloride 104 mmol/L (98-107) 10/08/16 07:30 Carbon Dioxide 23 mmol/L (21-33) 10/08/16 07:30 Anion Gap 10 (10-20) 10/08/16 07:30 BUN 14 mg/dL (7-21) 10/08/16 07:30 Creatinine 0.7 mg/dL (0.5-1.4) 10/08/16 07:30 Est GFR ( Amer) > 60 10/08/16 07:30 Est GFR (Non-Af Amer) > 60 10/08/16 07:30 POC Glucose (mg/dL) 338 mg/dL (65-110) H 10/08/16 07:25 Random Glucose 316 mg/dL (70-110) H* 10/08/16 07:30 Hemoglobin A1c 15.3 % (4.2-6.5) H 10/06/16 14:30 Calcium 8.3 mg/dL (8.4-10.5) L 10/08/16 07:30 Total Bilirubin 0.2 mg/dL (0.2-1.3) 10/08/16 07:30 AST 27 U/L (15-39) 10/08/16 07:30 ALT 34 U/L (7-56) 10/08/16 07:30 Alkaline Phosphatase 73 U/L (38-133) 10/08/16 07:30 Total Protein 5.9 g/dL (5.8-8.3) 10/08/16 07:30 Albumin 2.8 g/dL (3.0-4.8) L 10/08/16 07:30 Globulin 3.1 gm/dL 10/08/16 07:30 Albumin/Globulin Ratio 0.9 (1.1-1.8) L 10/08/16 07:30 Venous Blood Potassium 4.1 mmol/L (3.6-5.2) 10/06/16 19:09 Attending/Attestation - Attestation I have personally seen and examined this patient.: Yes I have fully participated in the care of the patient.: Yes I have reviewed all pertinent clinical information, including history, physical exam and plan: Yes Notes (Text): I have seen and examined patient at bedside. Agree with the above note with the following additions/ exceptions: This is 45 year old female with history of DM ( unknown if its type 1 or 2) on oral hypoglycemics came for evaluation of fatigue , numbness, tingling and found to have hyperglycemia. Patient states that she has lost her insurance and cannot afford to buy insulin or see the doctor. At home she was taking metformin, januvia and glipizide which she also ran out few days ago. Patient states that her HBA1C at doctor's office was 11. Patient has been getting diabetic education and insulin teaching. Recommend to start humilin 70/30 as hba1c is high however patient is still debating about that. She states that we can give her scripts for insulin but she does not want to buy that as she is convinced that her BS will improved with only oral hypoglycemics. Scripts for oral hypoglycemics also given. She states that she will get her insurance back soon and she plans to follow up with Dr Genoveva Hill and Dr Barrett. We also informed about the [facility] clinic that she can follow up there. Discussed with family educator who gave her some samples. HBA1C is 15. Advised patieent to make diabetes diary. Upon discharge patient will follow up in [facility] clinic. Dr Gonsalo Hernadez
== END 2016-10-08 13:07 | disposition home or self-care (01) | DRG 294 ==
LOC: ED 10:33 → ERH 15:50 → 3RSO 16:44
PROVIDERS: ADMIT Hospitalist; ATTEND Hospitalist
DX: E11.65 Type 2 diabetes mellitus with hyperglycemia (principal); E87.1 Hypo-osmolality and hyponatremia; Z79.84 Long term (current) use of oral hypoglycemic drugs

== ENCOUNTER 2017-01-02 07:06 | Emergency (ER) | payer MEDICAID ==
[2017-01-02 07:07] VITALS: BMI 22.4
--- NOTE | 2017-01-02 08:22 | ED PDOC ---
Arrival/HPI - General Chief Complaint: Eye Problem Time Seen by Provider: 01/02/17 07:26 - History of Present Illness Narrative History of Present Illness (Text): 01/02/17 08:19 A 46 year old female whose past medical history includes, diabetes, presents to the emergency department with redness to the left eye. The patient states that yesterday morning she had her eyelashes done and noticed redness and eyelid swelling to her left eye. She notes that she is currently in no pain because she took Advil. No visual changes. The patient denies headache, dizziness, shortness of breath, cough, chest pain, abdominal pain, nausea, diarrhea, vomiting, or any other complaint. No contacts or glasses. Time/Duration: Other (Yesterday) Symptom Onset: Sudden Symptom Course: Unchanged Activities at Onset: Rest, Light Context: Home Past Medical History - Provider Review Nursing Documentation Reviewed: Yes - Past History Past History: No Previous - Infectious Disease Hx of Infectious Diseases: None - Tetanus Immunization Tetanus Immunization: Unknown - Reproductive Menopause: No - Cardiac Hx Cardiac Disorders: No - Pulmonary Hx Respiratory Disorders: No - Neurological Hx Neurological Disorder: No - HEENT Hx HEENT Disorder: No - Renal Hx Renal Disorder: No - Endocrine/Metabolic Hx Endocrine Disorders: Yes Hx Diabetes Mellitus Type 2: Yes (NIDDM) - Hematological/Oncological Hx Blood Disorders: No - Integumentary Hx Dermatological Disorder: No - Musculoskeletal/Rheumatological Hx Musculoskeletal Disorders: No - Gastrointestinal Hx Gastrointestinal Disorders: No - Genitourinary/Gynecological Hx Genitourinary Disorders: No - Psychiatric Hx Psychophysiologic Disorder: No Hx Substance Use: No - Past Surgical History Past Surgical History: No Previous - Surgical History Hx Section: Yes - Anesthesia Hx Anesthesia: Yes Hx Anesthesia Reactions: No Hx Malignant Hyperthermia: No - Suicidal Assessment Feels Threatened In Home Enviroment: No Family/Social History - Physician Review Nursing Documentation Reviewed: Yes Family/Social History: No Known Family HX Smoking Status: Never Smoked Hx Alcohol Use: No Hx Substance Use: No Hx Substance Use Treatment: No Allergies/Home Meds Allergies/Adverse Reactions: Allergies No Known Allergies Allergy (Verified 10/06/16 11:13) Review of Systems - Physician Review All systems were reviewed & negative as marked: Yes - Review of Systems Constitutional: absent: Fevers, Night Sweats Eyes: Eye Pain, Other (Swelling to left eye lid) Respiratory: absent: SOB, Cough Cardiovascular: absent: Chest Pain Gastrointestinal: absent: Abdominal Pain, Diarrhea, Nausea, Vomiting Neurological: absent: Headache, Dizziness Physical Exam Vital Signs Reviewed: Yes Vital Signs Temp Pulse Resp BP Pulse Ox 01/02/17 08:32 98 F 85 19 119/72 99 01/02/17 07:32 98.7 F 90 16 137/88 98 Temperature: Afebrile Blood Pressure: Normal Pulse: Regular Respiratory Rate: Normal Appearance: Positive for: Well-Appearing, Non-Toxic, Comfortable Pain Distress: None Mental Status: Positive for: Alert and Oriented X 3 - Systems Exam Head: Present: Atraumatic, Normocephalic Pupils: Present: PERRL Extroacular Muscles: Present: EOMI, Other ([place] left eye, yellow discharge, visual acuity normal.) Conjunctiva: Present: Injected Neurological: Present: GCS=15, CN II-XII Intact, Speech Normal, Motor Func Grossly Intact, Normal Sensory Function Medical Decision Making ED Course and Treatment: 01/02/17 08:56 Impression: A 46 year old female with left eye redness after getting her eyelashes done yesterday morning. Differential Diagnosis included but are not limited to: Conjunctivitis Plan: 01/02/17 07:56: Tetracaine with Fluorescein strip used for eye exam. No visualization of any corneal abrasion. No foreign body visualized. Patient was given an Rx of Ofloxacin drops. Advised to remove eyelashes and makeup and to follow up with opthamology as outpatient. - Scribe Statement The provider has reviewed the documentation as recorded by the Scribe Shea Anderson Provider Scribe Attestation: All medical record entries made by the Scribe were at my direction and personally dictated by me. I have reviewed the chart and agree that the record accurately reflects my personal performance of the history, physical exam, medical decision making, and the department course for this patient. I have also personally directed, reviewed, and agree with the discharge instructions and disposition. Disposition/Present on Arrival - Present on Arrival Any Indicators Present on Arrival: No History of DVT/PE: No History of Uncontrolled Diabetes: No Urinary Catheter: No History of Decub. Ulcer: No History Surgical Site Infection Following: None - Disposition Have Diagnosis and Disposition been Completed?: Yes Diagnosis: Conjunctivitis Disposition: HOME/ ROUTINE Disposition Time: 08:50 Patient Plan: Discharge Condition: IMPROVED Discharge Instructions (ExitCare): Conjunctivitis (ED) Additional Instructions: Ms Gerard, thank you for letting us take care of you today. Your provider was Dr. Gauthier. You were treated for Conjunctivitis. The emergency medical care you received today was directed at your acute symptoms. If you were prescribed any medication, please fill it and take as directed. It may take several days for your symptoms to resolve. Return to the Emergency Department if your symptoms worsen, do not improve, or if you have any other problems. Please contact your doctor or call one of the physicians/clinics you have been referred to that are listed on the Patient Visit Information form that is included in your discharge packet. Bring any paperwork you were given at discharge with you along with any medications you are taking to your follow up visit. Our treatment cannot replace ongoing medical care by a primary care provider (PCP) outside of the emergency department. Thank you for allowing the [facility] team to be part of your care today. If you had an X-Ray or CT scan: A Radiologist will review the ED reading if any change in treatment is needed we will contact you. If you had a blood, urine, or wound culture: It will take several days for the results, if any change in treatment is needed we will contact you. If you had an STI test: It will take 48 hours for the results. Please call after 1 week if you have not heard back. Prescriptions: Ofloxacin Ophth 0.3% [Ocuflox Ophth 0.3%] 1 drop OS Q2H #1 bottle Referrals: Giacomo Quintero MD [Staff Provider] - Follow up with primary PCP,NO [Primary Care Provider] - Follow up with primary Forms: [employer] (Welsh), WORK NOTE
[2017-01-02 08:34] VITALS: BP 119/72; PULSE 85; RESP 19; TEMP 98; O2SAT 99
== END 2017-01-02 08:34 | disposition home or self-care (01) ==
LOC: ED 07:06
DX: H10.9 Unspecified conjunctivitis (principal)

== ENCOUNTER 2017-06-22 16:30 | Emergency (ER) | payer MEDICAID ==
[2017-06-22 16:30] VITALS: BMI 22.4
== END 2017-06-22 17:34 | disposition left against medical advice (07) ==
LOC: ED 16:30
DX: Z02.89 Encounter for other administrative examinations (principal); R73.9 Hyperglycemia, unspecified

== ENCOUNTER 2017-11-12 09:22 | Emergency (ER) | payer MEDICAID ==
[2017-11-12 09:23] VITALS: BMI 22.4
[2017-11-12 09:39] VITALS: RESP 18
--- NOTE | 2017-11-12 09:55 | ED PDOC ---
Arrival/HPI - General Chief Complaint: Lower Extremity Problem/Injury Time Seen by Provider: 11/12/17 09:26 Historian: Patient - History of Present Illness Narrative History of Present Illness (Text): 11/12/17 09:35 A 46 year old female, with no significant past medical history, presents to the emergency department complaining of left foot 1st digit pain and swelling s/p injury. Patient reports she accidentally dropped a case of soda onto toe and immediately came to the ER. Patient mentions no other complaints. No PMD Time/Duration: Prior to Arrival Past Medical History - Provider Review Nursing Documentation Reviewed: Yes - Past History Past History: No Previous - Infectious Disease Hx of Infectious Diseases: None - Tetanus Immunization Tetanus Immunization: Unknown - Cardiac Hx Cardiac Disorders: No - Pulmonary Hx Respiratory Disorders: No - Neurological Hx Neurological Disorder: No - HEENT Hx HEENT Disorder: No - Renal Hx Renal Disorder: No - Endocrine/Metabolic Hx Endocrine Disorders: Yes Hx Diabetes Mellitus Type 2: Yes (NIDDM) - Hematological/Oncological Hx Blood Disorders: No - Integumentary Hx Dermatological Disorder: No - Musculoskeletal/Rheumatological Hx Musculoskeletal Disorders: No - Gastrointestinal Hx Gastrointestinal Disorders: No - Genitourinary/Gynecological Hx Genitourinary Disorders: No - Psychiatric Hx Psychophysiologic Disorder: No Hx Substance Use: No - Past Surgical History Past Surgical History: No Previous - Surgical History Hx Section: Yes - Anesthesia Hx Anesthesia: Yes Hx Anesthesia Reactions: No Hx Malignant Hyperthermia: No - Suicidal Assessment Feels Threatened In Home Enviroment: No Family/Social History - Physician Review Nursing Documentation Reviewed: Yes Family/Social History: No Known Family HX Smoking Status: Never Smoked Hx Alcohol Use: No Hx Substance Use: No Hx Substance Use Treatment: No Allergies/Home Meds Allergies/Adverse Reactions: Allergies No Known Allergies Allergy (Verified 11/12/17 09:34) Review of Systems - Physician Review All systems were reviewed & negative as marked: Yes - Review of Systems Musculoskeletal: Other (left foot 1st digit pain and swelling s/p injury) Neurological: absent: Other (no numbness) Physical Exam Vital Signs Reviewed: Yes Vital Signs Temp Pulse Resp BP Pulse Ox 11/12/17 10:17 98.6 F 88 18 132/71 99 11/12/17 09:32 98.7 F 96 H 18 119/80 100 Temperature: Afebrile Blood Pressure: Normal Pulse: Regular Respiratory Rate: Normal Appearance: Positive for: Well-Appearing Pain Distress: None Mental Status: Positive for: Alert and Oriented X 3 - Systems Exam Lower Extremity: Present: Normal Inspection. No: Edema Neurological: Present: GCS=15, CN II-XII Intact, Speech Normal Skin: Present: Warm, Dry, Normal Color. No: Rashes Psychiatric: Present: Alert, Oriented x 3, Normal Insight, Normal Concentration Medical Decision Making ED Course and Treatment: 11/12/17 09:36 Impression: 46 year old female with left foot 1st digit injury s/p injury. Physical exam is benign. Plan: -- Left Foot X-Ray -- Toradol -- Reassess and disposition Progress Notes: 11/12/17 11:39 xr neg advise outpt fu - RAD Interpretation Radiology Orders: 11/12/17 09:35 FOOT LEFT 3 VIEWS ROUTINE [RAD] Stat - Medication Orders Current Medication Orders: Discontinued Medications Ketorolac Tromethamine (Toradol) 30 mg IM STAT STA Stop: 11/12/17 09:37 Last Admin: 11/12/17 09:43 Dose: 30 mg MAR Pain Assessment Document 11/12/17 09:43 EWO (Rec: 11/12/17 09:43 [id number] [id number]) Pain Reassessment Is this a pain reassessment? No IM Administration Charges Document 11/12/17 09:43 EWO (Rec: 11/12/17 09:43 [id number] [id number]) Charges for Administration # of IM Administrations 1 - Scribe Statement The provider has reviewed the documentation as recorded by the Alejandro Salcido Provider Scribe Attestation: All medical record entries made by the Ayliniblary were at my direction and personally dictated by me. I have reviewed the chart and agree that the record accurately reflects my personal performance of the history, physical exam, medical decision making, and the department course for this patient. I have also personally directed, reviewed, and agree with the discharge instructions and disposition. Disposition/Present on Arrival - Present on Arrival Any Indicators Present on Arrival: No History of DVT/PE: No History of Uncontrolled Diabetes: No Urinary Catheter: No History of Decub. Ulcer: No History Surgical Site Infection Following: None - Disposition Have Diagnosis and Disposition been Completed?: Yes Diagnosis: Toe sprain Disposition: HOME/ ROUTINE Disposition Time: 10:00 Condition: STABLE Discharge Instructions (ExitCare): Toe Injury Additional Instructions: return to er with worsening symptoms or concerns. Prescriptions: Naproxen [Naprosyn] 500 mg PO BID PRN #14 tablet PRN Reason: Pain, Mild (1-3) Referrals: [facility] [Outside] - Follow up with primary [facility] [Outside] - Follow up with primary Domenic Barnes DPM [Staff Provider] - Follow up with primary Angus Almeida MD [Staff Provider] - Follow up with primary Forms: [employer] (Yakut), WORK NOTE
[2017-11-12 10:18] VITALS: BP 132/71; PULSE 88; TEMP 98.6; O2SAT 99
--- NOTE | 2017-11-12 11:35 | RAD ---
PROCEDURE: Left Foot Radiographs. HISTORY: 1st toe injury COMPARISON: None. FINDINGS: BONES: Normal. No fracture. JOINTS: Normal. SOFT TISSUES: Normal. OTHER FINDINGS: None. IMPRESSION: Normal left foot radiographs. Concordant results with the preliminary interpretation rendered by the emergency department physician procedure.
[2017-11-12] MEDS ORDERED: Dextrose 50% SYRINGE Inj (50 ml) ONE (20:39)
== END 2017-11-12 10:17 | disposition home or self-care (01) ==
LOC: ED 09:22
DX: S93.502A Unspecified sprain of left great toe, initial encounter (principal); X58.XXXA Exposure to other specified factors, initial encounter; E11.9 Type 2 diabetes mellitus without complications
CPT/HCPCS: 73630; 96372; 99283; J1885

== ENCOUNTER 2018-01-28 14:32 | Emergency (ER) | payer MEDICAID, OTHER ==
[2018-01-28 14:32] VITALS: BMI 22.4
[2018-01-28 15:00] VITALS: RESP 19; TEMP 98
[2018-01-28] MEDS ORDERED: Sodium Chloride 0.9% 500 ML IV STA (15:30)
[2018-01-28 15:40] LABS: HEMOGLOBIN 11.5 g/dL (12.0-16.0); MEAN CORPUSCULAR HEMOGLOBIN 29.1 pg (25.0-35.0); MEAN CORPUSCULAR HGB CONC 35.1 g/dl (31.0-37.0); MEAN PLATELET VOLUME 11.4 fl (7.0-11.0); RBC 3.95 10^6/uL (3.5-6.1); RED CELL DISTRIBUTION WIDTH 12.2 % (11.5-14.5); WHITE BLOOD COUNT 8.9 10^3/ul (4.5-11.0)
[2018-01-28 15:40] LABS: URINE BILIRUBIN NEGATIVE (NEGATIVE); URINE BLOOD MODERATE (NEGATIVE); URINE GLUCOSE (UA) >=1000 mg/dL (NEGATIVE); URINE LEUKOCYTE ESTERASE NEGATIVE Leu/uL (NEGATIVE); URINE PROTEIN 30 mg/dL (<30 mg/dL); URINE UROBILINOGEN 0.2 E.U./dL (<1 E.U./dL)
[2018-01-28 15:42] LABS: URINE COLOR LIGHT YELLOW (YELLOW)
[2018-01-28 15:43] LABS: URINE APPEARANCE SLIGHT-CLOUDY (CLEAR)
--- NOTE | 2018-01-28 15:43 | ED PDOC ---
Arrival/HPI - General Chief Complaint: Back Pain Time Seen by Provider: 01/28/18 14:58 Historian: Patient - History of Present Illness Narrative History of Present Illness (Text): 01/28/18 15:42 Patient is a 47 year old female with a past medical history of diabetes presenting with a complaint of elevated blood sugars and weakness. Patient admits to not taking her medications as directed over the past week, missing 3 consecutive days of insulin, not taking glipizide for a week and sparingly taking her Metformin. Her blood sugar levels have been fluctuating over the past week with multiple readings greater than 400. She is experiencing intermittent mild abdominal pain that she is unable to describe. She reports decreased appetite. She decided to come to the emergency room today because she has been feeling weaker and had morning blood glucose of 410. Upon arrival her BS was >500. Denies fevers, chills, nausea, vomiting, diarrhea, constipation, chest pain, shortness of breath, headaches, numbness or tingling. Past Medical History - Provider Review Nursing Documentation Reviewed: Yes - Past History Past History: No Previous - Infectious Disease Hx of Infectious Diseases: None - Tetanus Immunization Tetanus Immunization: Unknown - Reproductive Menopause: No - Cardiac Hx Cardiac Disorders: No - Pulmonary Hx Respiratory Disorders: No - Neurological Hx Neurological Disorder: No - HEENT Hx HEENT Disorder: No - Renal Hx Renal Disorder: No - Endocrine/Metabolic Hx Endocrine Disorders: Yes Hx Diabetes Mellitus Type 2: Yes - Hematological/Oncological Hx Blood Disorders: No - Integumentary Hx Dermatological Disorder: No - Musculoskeletal/Rheumatological Hx Musculoskeletal Disorders: No - Gastrointestinal Hx Gastrointestinal Disorders: No - Genitourinary/Gynecological Hx Genitourinary Disorders: No - Psychiatric Hx Psychophysiologic Disorder: No Hx Substance Use: No - Past Surgical History Past Surgical History: No Previous - Surgical History Hx Section: Yes - Anesthesia Hx Anesthesia: Yes Hx Anesthesia Reactions: No Hx Malignant Hyperthermia: No - Suicidal Assessment Feels Threatened In Home Enviroment: No Family/Social History - Physician Review Nursing Documentation Reviewed: Yes Family/Social History: No Known Family HX Smoking Status: Never Smoked Hx Alcohol Use: No Hx Substance Use: No Hx Substance Use Treatment: No Allergies/Home Meds Allergies/Adverse Reactions: Allergies No Known Allergies Allergy (Verified 11/12/17 09:34) Home Medications: Home Meds Medication Instructions Recorded Confirmed Insulin Human NPH/Reg [humulin 30 units SC ACB 01/28/18 01/28/18 70/30 70 U/Ml-30 U/Ml 10 Ml] Insulin NPH Hum/Reg Insulin Hm 20 unit SQ HS 01/28/18 01/28/18 [Humulin 70/30 Kwikpen] Review of Systems - Physician Review All systems were reviewed & negative as marked: Yes - Review of Systems Constitutional: Fatigue. absent: Weight Change, Fevers Eyes: Normal. absent: Vision Changes Respiratory: Normal. absent: SOB, Cough Cardiovascular: Normal. absent: Chest Pain, Palpitations Gastrointestinal: Abdominal Pain (mild, diffuse), Appetite Changes (decreased). absent: Constipation, Diarrhea, Nausea, Vomiting Genitourinary Female: Normal. absent: Dysuria, Frequency, Hematuria Musculoskeletal: Normal Skin: Normal Neurological: Normal Endocrine: Normal Hemo/Lymphatic: Normal Psychiatric: Normal Physical Exam Vital Signs Reviewed: Yes Vital Signs Temp Pulse Resp BP Pulse Ox 01/28/18 14:59 98 F 73 19 132/53 L 96 01/28/18 14:55 98.7 F 99 H 16 142/88 100 Temperature: Afebrile Blood Pressure: Normal Pulse: Regular Respiratory Rate: Normal Appearance: Positive for: Non-Toxic, Comfortable Pain Distress: None Mental Status: Positive for: Alert and Oriented X 3 - Systems Exam Head: Present: Atraumatic, Normocephalic Pupils: Present: PERRL Extroacular Muscles: Present: EOMI Conjunctiva: Present: Normal Mouth: Present: Moist Mucous Membranes Neck: Present: Normal Range of Motion Respiratory/Chest: Present: Clear to Auscultation, Good Air Exchange. No: Respiratory Distress, Accessory Muscle Use Cardiovascular: Present: Regular Rate and Rhythm, Normal S1, S2. No: Murmurs Abdomen: Present: Tenderness (mild, diffuse). No: Distention, Peritoneal Signs , Rebound, Guarding, McBurney's Point Tender, Rovsing's Sign Present Back: Present: Normal Inspection. No: CVA Tenderness Upper Extremity: Present: Normal Inspection, NORMAL PULSES. No: Cyanosis, Edema Lower Extremity: Present: Normal Inspection, NORMAL PULSES. No: Edema Neurological: Present: GCS=15, Speech Normal, Motor Func Grossly Intact Skin: Present: Warm, Dry, Normal Color. No: Rashes Psychiatric: Present: Alert, Oriented x 3, Normal Insight, Normal Concentration Medical Decision Making ED Course and Treatment: 01/28/18 16:13 Tired appearing 47 year old female reporting periods of hyperglycemia over the past week, admitting medication non-compliance. Labs, EKG, IV insulin 8 units and IV fluids x2L of NS. Will re-assess 01/28/18 17:29 Patient reports feeling great and back to normal. She feels like she has her strength back. Discussed labs with patient. Labs show UTI - will prescribe Macrobid x 7days. Re-Check fingerstick 325 Will discharge patient home with instructions to follow up with her primary care physician within 2-3 days. It was stressed to patient that she needs to take her medications as directed. Patient states she understands and agrees. Re-evaluation Time: 17:29 Reassessment Condition: Improved - Lab Interpretations Lab Results: 01/28/18 15:28 01/28/18 15:28 Lab Results 01/28/18 15:28: Sodium 125 L, Potassium 4.7, Chloride 92 L, Carbon Dioxide 26, Anion Gap 12, BUN 22 H, Creatinine 0.8, Est GFR ( Amer) > 60, Est GFR ( Non-Af Amer) > 60, Random Glucose 511 H* D, Calcium 8.4, Total Bilirubin 0.3, AST 19, ALT 23, Alkaline Phosphatase 119, Total Protein 6.3, Albumin 3.3, Globulin 3.0, Albumin/Globulin Ratio 1.1 01/28/18 15:28: APTT 29.1 01/28/18 15:28: WBC 8.9 D, RBC 3.95, Hgb 11.5 L, Hct 32.8 L, MCV 83.0, MCH 29.1 , MCHC 35.1, RDW 12.2, Plt Count 259, MPV 11.4 H 01/28/18 15:20: Urine Color Light yellow, Urine Appearance Slight-cloudy, Urine pH 6.0, Ur Specific [place] 1.010, Urine Protein 30 H, Urine Glucose (UA) >=1000 , Urine Ketones Negative, Urine Blood Moderate H, Urine Nitrate Positive H, Urine Bilirubin Negative, Urine Urobilinogen 0.2, Ur Leukocyte Esterase Negative , Urine RBC 1 - 3, Urine WBC 1 - 3, Ur Epithelial Cells 0 - 2, Urine Bacteria Trace I have reviewed the lab results: Yes - EKG Interpretation EKG Interpretation (Text): 01/28/18 16:15 NSR @96bpm, normal axis, no acute ST segment changes. Interpreted by ED Physician: Yes Type: 12 lead EKG - Medication Orders Current Medication Orders: Discontinued Medications Sodium Chloride (Sodium Chloride 0.9%) 500 mls @ 999 mls/hr IV .Q31M STA Stop: 01/28/18 16:00 Last Admin: 01/28/18 15:32 Dose: 999 mls/hr eMAR Start Stop Document 01/28/18 15:32 GMI (Rec: 01/28/18 15:32 [id number] Intravenous Solution Start Date 01/28/18 Start Time 15:32 Insulin Human Regular (Humulin R) 8 units IV STAT STA Stop: 01/28/18 16:06 Last Admin: 01/28/18 16:44 Dose: 8 units eMAR Start Stop Document 01/28/18 16:44 GMI (Rec: 01/28/18 16:44 [id number] Intravenous Solution Start Date 01/28/18 Start Time 16:44 End Date 01/28/18 End time 16:44 Total Infusion Time 0 MAR Blood Glucose Document 01/28/18 16:44 GMI (Rec: 01/28/18 16:44 [id number] Blood Glucose Finger Stick Blood Glucose (70-120) 489 Disposition/Present on Arrival - Present on Arrival Any Indicators Present on Arrival: No History of DVT/PE: No History of Uncontrolled Diabetes: No Urinary Catheter: No History of Decub. Ulcer: No History Surgical Site Infection Following: None - Disposition Have Diagnosis and Disposition been Completed?: Yes Diagnosis: Hyperglycemia due to type 2 diabetes mellitus, UTI (urinary tract infection) Disposition: HOME/ ROUTINE Disposition Time: 17:44 Patient Plan: Discharge Patient Problems: Current Active Problems Problem Status Onset Hyperglycemia due to type 2 diabetes mellitus Acute UTI (urinary tract infection) Acute Condition: GOOD Discharge Instructions (ExitCare): Urinary Tract Infection, Adult (DC), Hyperglycemia, Adult (DC), Diabetes Type 2 (DC) Additional Instructions: Patient is to follow up with her primary care physician within 2-3 days. It was stressed to patient that she takes her medications as prescribed. Patient found to have a urinary tract infection. She is to take Macrobid twice a day for the next 7 days. Please take entire course of antibiotics, even if symptoms resolve. Prescriptions: Nitrofurantoin Macrocrystals [Macrobid] 100 mg PO Q12H #14 cap Forms: [facility] (Kyrgyz)
[2018-01-28 15:52] LABS: URINE BACTERIA TRACE (NEG); URINE EPITHELIAL CELLS 0 - 2 /hpf (0-5)
[2018-01-28 16:01] LABS: ALB/GLOB RATIO 1.1 (1.1-1.8); ALBUMIN 3.3 g/dL (3.0-4.8); ALT/SGPT 23 U/L (7-56); AST/SGOT 19 U/L (14-36); BLOOD UREA NITROGEN 22 mg/dL (7-21); CALCIUM 8.4 mg/dL (8.4-10.5); GFR NON-AFRICAN AMERICAN > 60
[2018-01-28] MEDS ORDERED: Insulin Regular 1 UNITS/0.01 ML ML IV STA (16:05)
[2018-01-28 19:01] VITALS: O2SAT 99
[2018-01-28 19:05] VITALS: BP 124/53; PULSE 85
--- NOTE | 2018-01-29 12:12 | CARD ---
APPROVED REPORT Date of service: 01/28/2018 EKG Measurement Heart [id number] <Conclusion> Normal sinus rhythm Normal ECG
== END 2018-01-28 18:00 | disposition home or self-care (01) ==
LOC: ED 14:32
DX: E11.65 Type 2 diabetes mellitus with hyperglycemia (principal); Z79.4 Long term (current) use of insulin; N39.0 Urinary tract infection, site not specified
CPT/HCPCS: 80053; 81001; 82948; 85027; 85730; 87086; 93005; 99284; J7040

== ENCOUNTER 2018-03-03 14:00 | Emergency (ER) | payer MEDICAID ==
[2018-03-03 14:12] VITALS: BMI 21.9
[2018-03-03 14:16] VITALS: TEMP 97.8
--- NOTE | 2018-03-03 14:35 | ED PDOC ---
Arrival/HPI - General Chief Complaint: Abnormal Labs Time Seen by Provider: 03/03/18 14:02 Historian: Patient - History of Present Illness Time/Duration: Prior to Arrival Symptom Onset: Gradual Symptom Course: Improving Associated Symptoms (Text): 03/03/18 14:31 Patient complains of bilateral infraorbital periorbital swelling for the last 3 days. No itching. No trauma. She states that it is actually improving. She was seen by the nurse practitioner Samy [phone] just prior to arrival and directed to the emergency department. Patient reports that she was in [place] several days ago and admitted to the hospital overnight for elevated blood sugar. She continues to refuse to take her insulin. She states she has been taking her metformin and glipizide. I spoke with the nurse practitioner who reports she sent the patient to the emergency department for a low protein and low albumin attained 02/22/2018. I discussed with her and that she would probably need a nephrology referral, but this was not an emergent problem. She agreed and will follow up with the patient again and make the appropriate referrals. Her hemoglobin A1c is greater than 15.5. There is no visual disturbance. No nausea or vomiting. Unclear if this is an allergic phenomenon, but the patient reports it is actually getting much better. Past Medical History - Past History Past History: No Previous - Infectious Disease Hx of Infectious Diseases: None - Tetanus Immunization Tetanus Immunization: Unknown - Reproductive Menopause: No - Cardiac Hx Cardiac Disorders: No - Pulmonary Hx Respiratory Disorders: No - Neurological Hx Neurological Disorder: No - HEENT Hx HEENT Disorder: No - Renal Hx Renal Disorder: No - Endocrine/Metabolic Hx Endocrine Disorders: Yes Hx Diabetes Mellitus Type 2: Yes - Hematological/Oncological Hx Blood Disorders: No - Integumentary Hx Dermatological Disorder: No - Musculoskeletal/Rheumatological Hx Musculoskeletal Disorders: No - Gastrointestinal Hx Gastrointestinal Disorders: No - Genitourinary/Gynecological Hx Genitourinary Disorders: No - Psychiatric Hx Psychophysiologic Disorder: No Hx Substance Use: No - Past Surgical History Past Surgical History: No Previous - Surgical History Hx Section: Yes - Anesthesia Hx Anesthesia: Yes Hx Anesthesia Reactions: No Hx Malignant Hyperthermia: No - Suicidal Assessment Feels Threatened In Home Enviroment: No Family/Social History - Physician Review Nursing Documentation Reviewed: Yes Family/Social History: Unknown Family HX Smoking Status: Never Smoked Hx Alcohol Use: No Hx Substance Use: No Hx Substance Use Treatment: No Allergies/Home Meds Allergies/Adverse Reactions: Allergies No Known Allergies Allergy (Verified 11/12/17 09:34) Home Medications: Home Meds Medication Instructions Recorded Confirmed Insulin Human NPH/Reg [humulin 30 units SC ACB 01/28/18 01/28/18 70/30 70 U/Ml-30 U/Ml 10 Ml] Insulin NPH Hum/Reg Insulin Hm 20 unit SQ HS 01/28/18 01/28/18 [Humulin 70/30 Kwikpen] Review of Systems - Physician Review All systems were reviewed & negative as marked: Yes - Review of Systems Constitutional: absent: Fatigue, Fevers Respiratory: absent: SOB, Cough Cardiovascular: absent: Chest Pain, Palpitations, Syncope Gastrointestinal: absent: Abdominal Pain, Constipation, Diarrhea, Nausea, Vomiting, Anorexia Neurological: absent: Headache, Dizziness, Focal Weakness Physical Exam Vital Signs Temp Pulse Resp BP Pulse Ox 03/03/18 14:12 97.8 F 108 H 20 149/90 100 Temperature: Afebrile Blood Pressure: Normal Pulse: Regular Respiratory Rate: Normal Appearance: Positive for: Well-Appearing, Non-Toxic, Comfortable Pain Distress: None Mental Status: Positive for: Alert and Oriented X 3 - Systems Exam Head: Present: Atraumatic, Normocephalic Pupils: Present: PERRL Extroacular Muscles: Present: EOMI Conjunctiva: Present: Normal, Other (Mild bilateral infraorbital boggy edema. No erythema or warmth. No itching. The eyes themselves appear normal.) Ears: Present: NORMAL TM, Normal Canal. No: Erythema, TM Bulging Mouth: Present: Moist Mucous Membranes Pharnyx: No: ERYTHEMA, EXUDATE, TONSILS ENLARGED Respiratory/Chest: Present: Clear to Auscultation, Good Air Exchange. No: Respiratory Distress, Accessory Muscle Use Cardiovascular: Present: Regular Rate and Rhythm, Normal S1, S2. No: Murmurs Upper Extremity: Present: Normal Inspection. No: Cyanosis, Edema Lower Extremity: Present: Normal Inspection. No: Edema Neurological: Present: GCS=15, CN II-XII Intact, Speech Normal, Motor Func Grossly Intact Skin: Present: Warm, Dry, Normal Color. No: Rashes Psychiatric: Present: Alert, Oriented x 3, Normal Insight, Normal Concentration Medical Decision Making ED Course and Treatment: 03/03/18 14:44 Patient's blood sugar is elevated at 252. She refuses insulin. She has been on insulin previously, but does not take it as prescribed. She does not take her medications as prescribed. As discussed above I have spoken with her nurse practitioner who will follow up in the office and make the appropriate referrals. We will try Benadryl for her eye edema and treated as an allergic reaction. Patient reports that it is markedly improved at this time. Disposition/Present on Arrival - Present on Arrival Any Indicators Present on Arrival: No History of DVT/PE: No History of Uncontrolled Diabetes: No Urinary Catheter: No History of Decub. Ulcer: No History Surgical Site Infection Following: None - Disposition Have Diagnosis and Disposition been Completed?: Yes Diagnosis: Hyperglycemia, Allergic reaction Disposition: HOME/ ROUTINE Disposition Time: 14:46 Patient Plan: Discharge Condition: GOOD Discharge Instructions (ExitCare): Hyperglycemia, Adult, Hives (DC) Additional Instructions: Benadryl [id number] as directed on bottle as needed. Follow up with her PMD for the appropriate referrals. Follow up in the ER as needed. Referrals: Genoveva Hill MD [Primary Care Provider] - Follow up with primary Forms: [facility] (Somali)
[2018-03-03 14:47] VITALS: BP 139/89; PULSE 106; RESP 18; O2SAT 98
== END 2018-03-03 15:21 | disposition home or self-care (01) ==
LOC: ED 14:00
DX: T78.40XA Allergy, unspecified, initial encounter (principal); E11.65 Type 2 diabetes mellitus with hyperglycemia; Z79.4 Long term (current) use of insulin

== ENCOUNTER 2018-03-07 01:23 | Inpatient (IN) | payer MEDICAID ==
[2018-03-07 02:32] VITALS: BMI 23.2
--- NOTE | 2018-03-07 02:35 | ED PDOC ---
Arrival/HPI - General Time Seen by Provider: 03/07/18 02:25 Historian: Patient - History of Present Illness Narrative History of Present Illness (Text): 03/07/18 02:31 Nichole Gerard is a 47 year old female, whose past medical history of diabetes, who presents to the Emergency department with complaints of back pain. Patient states she has been experiencing diffuse body aches, right flank pain, chills, and subjective fever. Patient denies headache, dizziness, chest pain, shortness of breath, nausea, vomiting, diarrhea, or any other complaint. Time/Duration: Prior to Arrival Symptom Onset: Gradual Symptom Course: Unchanged Activities at Onset: Light Context: Home Past Medical History - Provider Review Nursing Documentation Reviewed: Yes - Past History Past History: No Previous - Infectious Disease Hx of Infectious Diseases: None - Tetanus Immunization Tetanus Immunization: Unknown - Cardiac Hx Cardiac Disorders: No - Pulmonary Hx Respiratory Disorders: No - Neurological Hx Neurological Disorder: No - HEENT Hx HEENT Disorder: No - Renal Hx Renal Disorder: No - Endocrine/Metabolic Hx Endocrine Disorders: Yes Hx Diabetes Mellitus Type 2: Yes - Hematological/Oncological Hx Blood Disorders: No - Integumentary Hx Dermatological Disorder: No - Musculoskeletal/Rheumatological Hx Musculoskeletal Disorders: No - Gastrointestinal Hx Gastrointestinal Disorders: No - Genitourinary/Gynecological Hx Genitourinary Disorders: No - Psychiatric Hx Psychophysiologic Disorder: No Hx Substance Use: No - Past Surgical History Past Surgical History: No Previous - Surgical History Hx Section: Yes - Anesthesia Hx Anesthesia: Yes Hx Anesthesia Reactions: No Hx Malignant Hyperthermia: No - Suicidal Assessment Feels Threatened In Home Enviroment: No Family/Social History - Physician Review Nursing Documentation Reviewed: Yes Family/Social History: Unknown Family HX Smoking Status: Never Smoked Hx Alcohol Use: No Hx Substance Use: No Hx Substance Use Treatment: No Allergies/Home Meds Allergies/Adverse Reactions: Allergies No Known Allergies Allergy (Verified 03/07/18 02:32) Home Medications: Home Meds Medication Instructions Recorded Confirmed Insulin Human NPH/Reg [humulin 30 units SC ACB 01/28/18 01/28/18 70/30 70 U/Ml-30 U/Ml 10 Ml] Insulin NPH Hum/Reg Insulin Hm 20 unit SQ HS 01/28/18 01/28/18 [Humulin 70/30 Kwikpen] Review of Systems - Physician Review All systems were reviewed & negative as marked: Yes - Review of Systems Constitutional: Fevers (+subjective fever), Other (+body aches, +chills) Respiratory: absent: SOB, Cough Cardiovascular: absent: Chest Pain Gastrointestinal: Abdominal Pain. absent: Nausea, Vomiting Musculoskeletal: Back Pain Neurological: absent: Headache, Dizziness Physical Exam Vital Signs Reviewed: Yes Appearance: Positive for: Well-Appearing Pain Distress: None Mental Status: Positive for: Alert and Oriented X 3 - Systems Exam Head: Present: Atraumatic, Normocephalic Pupils: Present: PERRL Extroacular Muscles: Present: EOMI Conjunctiva: Present: Normal Mouth: Present: Moist Mucous Membranes Neck: Present: Normal Range of Motion Respiratory/Chest: Present: Clear to Auscultation, Good Air Exchange. No: Respiratory Distress, Accessory Muscle Use Cardiovascular: Present: Regular Rate and Rhythm, Normal S1, S2. No: Murmurs Abdomen: No: Tenderness, Distention, Peritoneal Signs Back: Present: CVA Tenderness Upper Extremity: Present: Normal Inspection. No: Cyanosis, Edema Lower Extremity: Present: Normal Inspection. No: Edema Neurological: Present: GCS=15, CN II-XII Intact, Speech Normal, Motor Func Grossly Intact, Normal Sensory Function Skin: Present: Warm, Dry, Normal Color. No: Rashes Psychiatric: Present: Alert, Oriented x 3, Normal Insight, Normal Concentration Medical Decision Making ED Course and Treatment: 03/07/18 02:37 Impression: 47 year old female who presents to the Emergency department with complaining of diffuse body aches, right flank pain, chills, and subjective fevers. Plan: -- Labs -- Rapid Flu A/B -- UA -- IV fluids -- Toradol -- Reassess and disposition Prior Visits: Notes and results from previous visits were reviewed. On 03/03/2018, pt was seen in the Emergency department for periorbital swelling. Pt was discharged home. Progress Notes: 03/07/18 03:57 Case discussed with product manager medical device road production general manager, who is aware and agrees with plan. 03/07/18 04:[address] Ornelas, who is aware and agrees with plan. Accepts pt in to hospitalist service. Pt will go to [facility] observation for pyelonephritis. 03/07/18 04:09 - Lab Interpretations I have reviewed the lab results: Yes - PA / CHILDCARE ATTENDANT / Resident Statement MD/DO has reviewed & agrees with the documentation as recorded. - Scribe Statement The provider has reviewed the documentation as recorded by the Scribe Sunita Emerson training with Yessenia Harding Provider Scribe Attestation: All medical record entries made by the Scribe were at my direction and personally dictated by me. I have reviewed the chart and agree that the record accurately reflects my personal performance of the history, physical exam, medical decision making, and the department course for this patient. I have also personally directed, reviewed, and agree with the discharge instructions and disposition. Disposition/Present on Arrival - Present on Arrival Any Indicators Present on Arrival: No History of DVT/PE: No History of Uncontrolled Diabetes: No Urinary Catheter: No History Surgical Site Infection Following: None - Disposition Have Diagnosis and Disposition been Completed?: Yes Diagnosis: Uncontrolled diabetes mellitus, Pyelonephritis Disposition: HOSPITALIZED Disposition Time: 03:58 Patient Problems: Current Active Problems Problem Status Onset Pyelonephritis Acute Uncontrolled diabetes mellitus Acute Condition: STABLE Referrals: Kimmie Rodrigues MD [Staff Provider] - Follow up with primary
[2018-03-07] MEDS ORDERED: Sodium Chloride 0.9% 1,000 ML IV STA (02:37)
[2018-03-07 03:00] LABS: PH,URINE 6.5 (4.7-8.0); URINE BILIRUBIN NEGATIVE (NEGATIVE); URINE BLOOD MODERATE (NEGATIVE); URINE GLUCOSE (UA) >=1000 mg/dL (NEGATIVE); URINE LEUKOCYTE ESTERASE NEGATIVE Leu/uL (NEGATIVE); URINE PROTEIN >=300 mg/dL (<30 mg/dL)
[2018-03-07 03:01] LABS: HEMOGLOBIN 11.3 g/dL (12.0-16.0); MEAN CELL VOLUME 83.9 fl (80.0-105.0); MEAN CORPUSCULAR HEMOGLOBIN 28.4 pg (25.0-35.0); MEAN CORPUSCULAR HGB CONC 33.8 g/dl (31.0-37.0); MEAN PLATELET VOLUME 9.9 fl (7.0-11.0); RBC 3.98 10^6/uL (3.5-6.1); RED CELL DISTRIBUTION WIDTH 12.1 % (11.5-14.5); WHITE BLOOD COUNT 10.8 10^3/ul (4.5-11.0)
[2018-03-07 03:03] LABS: URINE APPEARANCE SL CLOUDY (CLEAR); URINE COLOR YELLOW (YELLOW)
[2018-03-07 03:12] LABS: URINE BACTERIA MANY (NEG); URINE WBC 25 - 30 /hpf (0-6)
[2018-03-07 03:22] LABS: ALB/GLOB RATIO 0.8 (1.1-1.8); ALT/SGPT 28 U/L (7-56); AST/SGOT 24 U/L (14-36); BLOOD UREA NITROGEN 17 mg/dL (7-21); CALCIUM 8.4 mg/dL (8.4-10.5); GFR NON-AFRICAN AMERICAN 54
[2018-03-07] MEDS ORDERED: cefTRIAXone 1 gm 1 GM/100 ML BAG IV STA (03:36)
[2018-03-07] MEDS ORDERED: Insulin Regular 1 UNITS/0.01 ML ML SC STA (03:39)
[2018-03-07] MEDS ORDERED: Sodium Chloride 0.9% 1,000 ML IV SCH (03:45)
[2018-03-07] MEDS ORDERED: Potassium Chloride 20 mEq ER Tab PO STA (04:21)
[2018-03-07] MEDS ORDERED: Iohexol 350 MG/100 ML VIAL ONE (04:31)
--- NOTE | 2018-03-07 04:44 | CP.PCM.HP ---
<Poli Quijano - Last Filed: 03/07/18 04:56> History of Present Illness - History of Present Illness History of Present Illness: Poli Quijano, PGY1 Hospital H&P This is a 47 year old female with PMH of DM presenting to ED for vague back and abdominal pain that began 2 nights ago. Pain started in the right shoulder, rated 10/10 at worst, sharp, intermittent, radiated to the right flank and denies anything making the pain worse or better. She has no associated symptoms and has never had this pain before. Last BM was this morning and patient reports normal appetite. Pain currently 8/10 in lower back and is now in the left flank region. She denies CP, SOB, fevers, chills, nausea, vomiting, headaches, urinary complaints, numbness, tingling, swelling, diarrhea and constipation. 12 point ROS noted here, otherwise unremarkable. In ED, patient given 2L NS, rocephin and toradol. Hg was 11.3, glucose 350 and alkaline phos 205. U/A revealed protein, moderate blood, nitrates, 25-30 WBC and many bacteria. PMD: Dr Hill PMH: as above SH: denies smoking, drinking and drugs Sx: C section in 1999 FH: HTN, DM All: NKDA LMP: 2 days ago, no irregular cycles or heavy bleeding Present on Admission - Present on Admission Any Indicators Present on Admission: Yes History of Uncontrolled Diabetes: Yes Past Patient History - Infectious Disease Hx of Infectious Diseases: None - Tetanus Immunizations Tetanus Immunization: Unknown - Past Social History Smoking Status: Never Smoked - CARDIAC Hx Cardiac Disorders: No - PULMONARY Hx Respiratory Disorders: No - NEUROLOGICAL Hx Neurological Disorder: No - HEENT Hx HEENT Problems: No - RENAL Hx Chronic Kidney Disease: No - ENDOCRINE/METABOLIC Hx Endocrine Disorders: Yes Hx Diabetes Mellitus Type 2: Yes - HEMATOLOGICAL/ONCOLOGICAL Hx Blood Disorders: No - INTEGUMENTARY Hx Dermatological Problems: No - MUSCULOSKELETAL/RHEUMATOLOGICAL Hx Musculoskeletal Disorders: No - GASTROINTESTINAL Hx Gastrointestinal Disorders: No - GENITOURINARY/GYNECOLOGICAL Hx Genitourinary Disorders: No - PSYCHIATRIC Hx Psychophysiologic Disorder: No Hx Substance Use: No - SURGICAL HISTORY Hx Section: Yes - ANESTHESIA Hx Anesthesia: Yes Hx Anesthesia Reactions: No Hx Malignant Hyperthermia: No Meds Allergies/Adverse Reactions: Allergies Allergy/AdvReac Type Severity Reaction Status Date / Time No Known Allergies Allergy Verified 03/07/18 02:32 Physical Exam - Constitutional Appears: No Acute Distress - Head Exam Head Exam: ATRAUMATIC, NORMAL INSPECTION - Eye Exam Eye Exam: EOMI Pupil Exam: PERRL - ENT Exam ENT Exam: Mucous Membranes Moist - Respiratory Exam Respiratory Exam: Clear to Auscultation Bilateral. absent: Respiratory Distress - Cardiovascular Exam Cardiovascular Exam: REGULAR RHYTHM, +S1, +S2 - GI/Abdominal Exam GI & Abdominal Exam: Normal Bowel Sounds. absent: Firm, Guarding Additional comments: LLQ tenderness appreciated to deep palpation - Extremities Exam Extremities exam: Positive for: normal inspection. Negative for: calf tenderness - Back Exam Back exam: NORMAL INSPECTION. absent: CVA tenderness (L), CVA tenderness (R), tenderness - Neurological Exam Neurological exam: Alert, Oriented x3 - Skin Skin Exam: Normal Color, Warm Results - Vital Signs Recent Vital Signs: Last Vital Signs Temp 98.7 F 03/07/18 03:00 Pulse 92 H 03/07/18 03:00 Resp 18 03/07/18 03:00 BP 154/90 H 03/07/18 03:00 Pulse Ox 98 03/07/18 03:00 - Labs Result Diagrams: 03/07/18 02:51 03/07/18 02:51 Labs: Laboratory Results - last 24 hr 03/07/18 03/07/18 03/07/18 02:51 02:51 02:51 WBC 10.8 D RBC 3.98 Hgb 11.3 L Hct 33.4 L MCV 83.9 MCH 28.4 MCHC 33.8 RDW 12.1 Plt Count 429 MPV 9.9 Sodium 133 Potassium 3.5 L Chloride 93 L Carbon Dioxide 34 H Anion Gap 9 L BUN 17 Creatinine 1.1 Est GFR ( Amer) > 60 Est GFR (Non-Af Amer) 54 Random Glucose 350 H* D Calcium 8.4 Total Bilirubin 0.4 AST 24 ALT 28 Alkaline Phosphatase 205 H D Total Protein 6.6 Albumin 3.0 Globulin 3.6 Albumin/Globulin Ratio 0.8 L Urine Color Yellow Urine Appearance Sl cloudy Urine pH 6.5 Ur Specific [place] 1.020 Urine Protein >=300 H Urine Glucose (UA) >=1000 Urine Ketones Trace H Urine Blood Moderate H Urine Nitrate Positive H Urine Bilirubin Negative Urine Urobilinogen 1.0 H Ur Leukocyte Esterase Negative Urine RBC 1 - 3 Urine WBC 25 - 30 Ur Epithelial Cells 1 - 3 Urine Bacteria Many Influenza Typ A,B (EIA) 03/07/18 03:15 WBC RBC Hgb Hct MCV MCH MCHC RDW Plt Count MPV Sodium Potassium Chloride Carbon Dioxide Anion Gap BUN Creatinine Est GFR ( Amer) Est GFR (Non-Af Amer) Random Glucose Calcium Total Bilirubin AST ALT Alkaline Phosphatase Total Protein Albumin Globulin Albumin/Globulin Ratio Urine Color Urine Appearance Urine pH Ur Specific [place] Urine Protein Urine Glucose (UA) Urine Ketones Urine Blood Urine Nitrate Urine Bilirubin Urine Urobilinogen Ur Leukocyte Esterase Urine RBC Urine WBC Ur Epithelial Cells Urine Bacteria Influenza Typ A,B (EIA) Negative for flu a/b Assessment & Plan - Assessment and Plan (Free Text) Assessment: This is a 47 year old female with PMH of DM presenting to ED for vague back and abdominal pain that began 2 nights ago. Plan: Left Flank Pain: -afebrile, WBC WNL -abdominal US pending -consider CT abd/pelvis w/wo contrast for evaluation of pyelonephritis -lipase pending -urine pending -blood/urine culture pending -continue rocephin -toradol prn for pain -procalcitonin pending -CPK pending -NS @ 100cc Anemia -Hg 11.3, consistent with previous baseline -MCV WNL, normocytic -iron studies pending Hypokalemia -repleted -followup labs Asymptomatic bacteriuria -U/A positive for ketones, bacteria, 25-30 WBC, nitrates, blood -continue rocephin, f/u urine culture -f/u abdominal US, consider CT abd/pelvis Hx of DM -A1c pending -lipid panel pending -insulin lispro ACHS -Diabetic diet PPX with heparin 5K Patient seen and case discussed with attending, Dr. Ornelas <Rebecca Ornelas - Last Filed: 03/07/18 06:22> Results - Vital Signs Recent Vital Signs: Last Vital Signs Temp 98.7 F 03/07/18 03:00 Pulse 92 H 03/07/18 03:00 Resp 18 03/07/18 03:00 BP 154/90 H 03/07/18 03:00 Pulse Ox 98 03/07/18 03:00 - Labs Result Diagrams: 03/07/18 02:51 03/07/18 02:51 Labs: Laboratory Results - last 24 hr 03/07/18 03/07/18 03/07/18 02:51 02:51 02:51 WBC 10.8 D RBC 3.98 Hgb 11.3 L Hct 33.4 L MCV 83.9 MCH 28.4 MCHC 33.8 RDW 12.1 Plt Count 429 MPV 9.9 Sodium 133 Potassium 3.5 L Chloride 93 L Carbon Dioxide 34 H Anion Gap 9 L BUN 17 Creatinine 1.1 Est GFR ( Amer) > 60 Est GFR (Non-Af Amer) 54 POC Glucose (mg/dL) Random Glucose 350 H* D Calcium 8.4 Iron TIBC % Saturation Total Bilirubin 0.4 AST 24 ALT 28 Alkaline Phosphatase 205 H D Total Creatine Kinase Total Protein 6.6 Albumin 3.0 Globulin 3.6 Albumin/Globulin Ratio 0.8 L Triglycerides Cholesterol LDL Cholesterol Direct HDL Cholesterol Lipase Urine Color Yellow Urine Appearance Sl cloudy Urine pH 6.5 Ur Specific [place] 1.020 Urine Protein >=300 H Urine Glucose (UA) >=1000 Urine Ketones Trace H Urine Blood Moderate H Urine Nitrate Positive H Urine Bilirubin Negative Urine Urobilinogen 1.0 H Ur Leukocyte Esterase Negative Urine RBC 1 - 3 Urine WBC 25 - 30 Ur Epithelial Cells 1 - 3 Urine Bacteria Many Influenza Typ A,B (EIA) 03/07/18 03/07/18 03/07/18 02:51 02:51 03:15 WBC RBC Hgb Hct MCV MCH MCHC RDW Plt Count MPV Sodium Potassium Chloride Carbon Dioxide Anion Gap BUN Creatinine Est GFR ( Amer) Est GFR (Non-Af Amer) POC Glucose (mg/dL) Random Glucose Calcium Iron 33 L TIBC 207 L % Saturation 16 L Total Bilirubin AST ALT Alkaline Phosphatase Total Creatine Kinase 44 Total Protein Albumin Globulin Albumin/Globulin Ratio Triglycerides 196 H Cholesterol 176 LDL Cholesterol Direct 107 HDL Cholesterol 38 Lipase 89 Urine Color Urine Appearance Urine pH Ur Specific [place] Urine Protein Urine Glucose (UA) Urine Ketones Urine Blood Urine Nitrate Urine Bilirubin Urine Urobilinogen Ur Leukocyte Esterase Urine RBC Urine WBC Ur Epithelial Cells Urine Bacteria Influenza Typ A,B (EIA) Negative for flu a/b 03/07/18 05:02 WBC RBC Hgb Hct MCV MCH MCHC RDW Plt Count MPV Sodium Potassium Chloride Carbon Dioxide Anion Gap BUN Creatinine Est GFR ( Amer) Est GFR (Non-Af Amer) POC Glucose (mg/dL) 307 H Random Glucose Calcium Iron TIBC % Saturation Total Bilirubin AST ALT Alkaline Phosphatase Total Creatine Kinase Total Protein Albumin Globulin Albumin/Globulin Ratio Triglycerides Cholesterol LDL Cholesterol Direct HDL Cholesterol Lipase Urine Color Urine Appearance Urine pH Ur Specific [place] Urine Protein Urine Glucose (UA) Urine Ketones Urine Blood Urine Nitrate Urine Bilirubin Urine Urobilinogen Ur Leukocyte Esterase Urine RBC Urine WBC Ur Epithelial Cells Urine Bacteria Influenza Typ A,B (EIA) Attending/Attestation - Attestation I have personally seen and examined this patient.: Yes I have fully participated in the care of the patient.: Yes I have reviewed all pertinent clinical information: Yes
[2018-03-07] MEDS: Sodium Chloride 0.9% 1,000 ML IV SCH ×2 (04:58→21:40)
[2018-03-07 05:34] LABS: IRON 33 ug/dL (45-180)
[2018-03-07 05:44] LABS: % IRON SATURATION 16 % (20-55); TOTAL IRON BINDING CAPACITY 207 ug/dL (265-497)
[2018-03-07] MEDS: Insulin Lispro (humaLOG) LOW Coverage SC SCH ×4 (08:43→21:35)
[2018-03-07] MEDS: cefTRIAXone 1 gm 1 GM/100 ML BAG IVPB SCH (10:54)
--- NOTE | 2018-03-07 16:25 | CT ---
Date of service: 03/07/2018 PROCEDURE: CT Abdomen and Pelvis without intravenous contrast HISTORY: r/o pyelonephritis, hydronephrosis COMPARISON: Abdomen and pelvis CT with contrast 06/08/2013. TECHNIQUE: Helical CT of the abdomen and pelvis was performed without oral or intravenous contrast as per referring physician request. Coronal and sagittal reformats were generated. Contrast dose: None Radiation dose: Total exam DLP = 316.29 mGy-cm. This CT exam was performed using one or more of the following dose reduction techniques: Automated exposure control, adjustment of the mA and/or kV according to patient size, and/or use of iterative reconstruction technique. FINDINGS: LOWER THORAX: Minimal bilateral pleural effusions are identified with dependent or compressive atelectasis at the bilateral bases. Linear atelectasis or fibrosis seen at the left greater than right lung base as well. LIVER: At the dome of the liver there is a 4.2 x 3.2 cm lucent lesion with no additional focal finding identified throughout the liver in this noncontrast CT examination. This likely represents the patient's prior benign hemangioma at the dome the slightly larger in the interval. The liver is enlarged moderately. GALLBLADDER AND BILE DUCTS: Gallbladder is contracted and otherwise unremarkable appearing. PANCREAS: No definitive pancreatic findings appreciable. SPLEEN: Unremarkable. ADRENALS: Unremarkable. No mass. KIDNEYS AND URETERS: No prominent obstructive uropathy identified bilaterally. No definite radiodense urolithiasis. Borderline hydronephrosis is difficult to exclude bilaterally. There is a lack of perisinus fat and overall intra peritoneal fat in this patient. VASCULATURE: No aortic aneurysm. Limited aortic atherosclerotic calcification present. Further, there is prominent splenic artery calcified atherosclerosis for the patient's age of 47 years. BOWEL: Unremarkable. No obstruction. No gross mural thickening. APPENDIX: not identified. Evaluation for potential appendicitis is suboptimal, if clinically suspected. PERITONEUM: Peritoneal fat appears injected as well as extraperitoneal fat which may reflect limited anasarca. Clinically correlate. No free intra peritoneal gas collection is identified. Limited fluid is suspected in the pelvis with no abdominal ascites identified. LYMPH NODES: No gross lymphadenopathy identified in the abdomen or pelvis. BLADDER: Bladder is not fully distended limiting evaluation of the wall. No radiodense urolithiasis in the bladder. REPRODUCTIVE: Unremarkable. BONES: No acute fracture. OTHER FINDINGS: None. IMPRESSION: 1. No radiodense urolithiasis bilaterally. Examination is limited due to lack of contrast agents and intra peritoneal fat. There is no moderate or prominent hydronephrosis bilaterally. Borderline hydronephrosis not completely excluded but may not be present nevertheless. Follow-up contrast CT (if there is no contraindication) or renal ultrasound is advised if clinical concern remains for hydronephrosis. 2. 4.2 likely benign hemangioma identified at the dome of liver somewhat larger in the interval. 3. Limited pelvic fluid suspected of uncertain etiology. Limited anasarca suspected. 4. Minimal bilateral pleural effusions identified.
[2018-03-07] MEDS: Insulin Lispro 1 UNITS/0.01 ML SC SCH (16:30)
[2018-03-07] MEDS ORDERED: Insulin Reg-HIGH-Coverage SC SCH (16:30)
[2018-03-07] MEDS ORDERED: Insulin Detemir 100 units/ml Vial (Levemir) SC SCH (18:00)
[2018-03-07] MEDS: Insulin Detemir 100 units/ml Vial (Levemir) SC SCH (21:37)
--- NOTE | 2018-03-07 23:31 | CON ---
DATE: 03/07/2018 LOCATION: In room #566. HISTORY OF PRESENT ILLNESS: This is a 47-year-old female with known history of type 2 diabetes and hypertension, presenting here with severe upper abdominal pain with bilateral flank pain and is currently undergoing workup and management for acute pyelonephritis and is being referred also for diabetic evaluation because of persistent hyperglycemic accelerations with an A1c of 15.4%. PAST MEDICAL HISTORY: History of type 2 diabetes, currently on glipizide given as 5 mg daily and metformin at 1 gm b.i.d., history of hypertension and dyslipidemia. FAMILY HISTORY: Positive for diabetes and hypertension. SOCIAL HISTORY: The patient has a supportive family. No known substance use. REVIEW OF SYSTEMS: As mentioned above admits to generalized body weakness with progressive bouts of dizziness and lightheadedness and bifrontal headaches with visual blurring as noted. No chest pains or palpitations. Her oral intake has been variable with nausea, dyspepsia and sudden onset of upper abdominal pain with bilateral flank pain as noted. Also admits to marked polyuria and nocturia and polydipsia as noted. PHYSICAL EXAMINATION: GENERAL: Average built female in no apparent distress. VITAL SIGNS: Blood pressure of 140/80, pulse of 100 beats per minute regular, temperature 98, respirations 20, height is 5 feet 2 inches, weight is 127 pounds. HEENT: Head normocephalic. Eyes anicteric with pink conjunctivae. Funduscopy not possible at this time. Ears, nose and throat otherwise normal. NECK: Supple. Thyroid gland is normal size. No carotid bruits or cervical adenopathy. CARDIOPULMONARY: Some adynamic precordium. S1, S2 are rapid and regular. LUNGS: Clear to auscultation. ABDOMEN: Flat, soft with positive bowel sounds. EXTREMITIES: No peripheral edema. Pulses are +2 bilaterally. LABORATORY DATA: Her initial chemistries showed a BUN of 17, sodium 133, potassium 3.5, chloride 93, CO2 of 34, glucose 350 and creatinine 1.1. Her hemoglobin A1c is 15.4%. Her procalcitonin is 0.99. The subsequent glucose levels have ranged from 248 to 307 mg/dL. ASSESSMENT This is a 47-year-old female with uncontrolled and decompensated type 2 insulin-requiring diabetes with clearly a suboptimal metabolic control on her previous oral hypoglycemic drug combination as given and presenting here with acute pyelonephritis and supervening marked hyperglycemic accelerations as noted thereof. PLAN OF MANAGEMENT: The most optimal regimen at this time for not only improving her clinical and metabolic symptoms but also for improving her overall metabolic profile would actually be the initiation of a more physiologic basal and bolus insulin drug combination as will be ordered. We will start her with Humalog given as 8 units subcu t.i.d. before meals to start at dinner time today as ordered. We will modify the coverage scale to obviate hypoglycemia and detailed orders have been given. We will also add basal insulin with Levemir to be given as 20 units subcu at bedtime daily and we will titrate incrementally as indicated to optimize metabolic control. We will initiate diabetic education and dietary instructions to include insulin self-administration and home glucose monitoring accordingly. We will follow. Yaz Brunner MD
[2018-03-08 07:31] LABS: BASO # 0.03 K/mm3 (0.0-2.0); BASO % 0.3 % (0.0-3.0); EOS # 0.3 (0.0-0.7); EOS % 3.2 % (1.5-5.0); GRAN # 6.1 (1.4-6.5); GRAN % 68.1 % (50.0-68.0); HEMOGLOBIN 9.7 g/dL (12.0-16.0); LYMPH # 1.9 (1.2-3.4); LYMPH % 21.2 % (22.0-35.0); MEAN CELL VOLUME 84.9 fl (80.0-105.0); MEAN CORPUSCULAR HEMOGLOBIN 27.7 pg (25.0-35.0); MEAN CORPUSCULAR HGB CONC 32.7 g/dl (31.0-37.0); MEAN PLATELET VOLUME 10.3 fl (7.0-11.0); MONO # 0.7 (0.1-0.6); MONO % 7.2 % (1.0-6.0); RBC 3.5 10^6/uL (3.5-6.1); RED CELL DISTRIBUTION WIDTH 12.2 % (11.5-14.5)
[2018-03-08 07:53] LABS: ALB/GLOB RATIO 0.8 (1.1-1.8); ALBUMIN 2.8 g/dL (3.0-4.8); ALT/SGPT 40 U/L (7-56); AST/SGOT 57 U/L (14-36); BLOOD UREA NITROGEN 18 mg/dL (7-21); CALCIUM 7.7 mg/dL (8.4-10.5); GFR NON-AFRICAN AMERICAN 60
[2018-03-08] MEDS: Insulin Lispro (humaLOG) LOW Coverage SC SCH ×4 (08:03→21:43)
[2018-03-08] MEDS: Insulin Lispro 1 UNITS/0.01 ML SC SCH ×3 (08:24→16:55)
[2018-03-08] MEDS: cefTRIAXone 1 gm 1 GM/100 ML BAG IVPB SCH (09:59)
[2018-03-08] MEDS: Naproxen 550 mg Tab PO SCH ×2 (11:05→17:43)
--- NOTE | 2018-03-08 13:13 | US ---
Date of service: 03/07/2018 HISTORY: R/O pyelonephritis and LLQ pain COMPARISON: None. TECHNIQUE: Sonographic evaluation of the abdomen. FINDINGS: LIVER: Measures 18.6 cm. Normal echogenicity of the liver parenchyma. Echogenic mass in right lobe of liver, 3.2 x 3.7 x 3.8 cm. Nonspecific. Further evaluation advised. No other mass identified. Please note that evaluation of the liver was limited by the patient's inability to tolerate the examination. No biliary dilatation. Smooth contour. GALLBLADDER: Unremarkable. No gallstones. COMMON BILE DUCT: Measures 3 mm. No stones. No dilatation. PANCREAS: Unremarkable as visualized. No mass. No ductal dilatation. RIGHT KIDNEY: Measures 11.3cm. Increased cortical echogenicity. Consistent with diffuse medical renal disease. No hydronephrosis. No mass or calculus. LEFT KIDNEY: Measures 9.7cm. Normal echogenicity. No calculus, mass, or hydronephrosis. SPLEEN: Normal in size and contour. No mass. AORTA: No aneurysmal dilatation. IVC: Unremarkable. OTHER FINDINGS: None. IMPRESSION: 3.8 cm echogenic mass in right lobe of liver. Further evaluation advised. Mild hepatomegaly. Diffusely increased cortical echogenicity of the right kidney common nonspecific. No hydronephrosis. No additional abnormality. Please note that the examination was limited by the patient's inability to tolerate the examination.
--- NOTE | 2018-03-08 13:22 | CP.PCM.PN ---
<Shelton Aguirre - Last Filed: 03/08/18 13:09> Subjective - Date & Time of Evaluation Date of Evaluation: 03/08/18 Time of Evaluation: 13:09 - Subjective Subjective: Resident Shelton Aguirre DO PGY-[address] Ranjeet Wilson Pt was seen and examined today at bedside. Pt states that she is feeling better but is still complaining of R sided non-radiating flank pain. She denies any fevers, chills, nausea, vomiting. She states that she is able to tolerate her diet and has no acute somatic complaints at this time. Objective - Vital Signs/Intake and Output Vital Signs (last 24 hours): Temp Pulse Resp BP Pulse Ox 98 F 98 H 16 138/85 100 03/07/18 23:01 03/07/18 23:01 03/07/18 23:01 03/07/18 23:01 03/07/18 23:01 Intake and Output: 03/08/18 03/08/18 06:59 18:59 Intake Total 1680 Balance 1680 - Medications Medications: Current Medications Cyclobenzaprine HCl (Flexeril) 5 mg PO TID [facility] Heparin Sodium (Porcine) (Heparin) 5,000 units SC Q8 LILY; Protocol Last Admin: 03/08/18 06:30 Dose: 5,000 units Sodium Chloride (Sodium Chloride 0.9%) 1,000 mls @ 100 mls/hr IV .Q10H LILY Last Admin: 03/07/18 21:40 Dose: 100 mls/hr Ceftriaxone Sodium (Rocephin 1 Gram Ivpb) 1 gm in 100 mls @ 100 mls/hr IVPB DAILY LILY; Protocol Last Admin: 03/08/18 09:59 Dose: 100 mls/hr Insulin Detemir (Levemir) 20 unit SC HS LILY Last Admin: 03/07/18 21:37 Dose: 20 units Insulin Human Lispro (Humalog Low) 0 units SC ACHS LILY; Protocol Last Admin: 03/08/18 08:03 Dose: Not Given Insulin Human Lispro (Humalog) 8 units SC AC LILY Last Admin: 03/08/18 12:04 Dose: 8 unit Naproxen (Anaprox Ds) 550 mg PO BID LILY Last Admin: 03/08/18 11:05 Dose: 550 mg - Labs Labs: 03/08/18 07:00 03/08/18 07:00 - Constitutional Appears: Well, Non-toxic, No Acute Distress - Head Exam Head Exam: ATRAUMATIC, NORMAL INSPECTION, NORMOCEPHALIC - Eye Exam Eye Exam: EOMI, Normal appearance, PERRL - Respiratory Exam Respiratory Exam: Clear to Ausculation Bilateral, NORMAL BREATHING PATTERN. abs ent: Accessory Muscle Use, Rales, Rhonchi, Wheezes, Respiratory Distress - Cardiovascular Exam Cardiovascular Exam: REGULAR RHYTHM, +S1, +S2. absent: Gallop, Rubs - GI/Abdominal Exam GI & Abdominal Exam: Soft, Normal Bowel Sounds. absent: Guarding, Rigid, Tenderness - Extremities Exam Extremities Exam: Full ROM, Normal Inspection. absent: Calf Tenderness, Pedal Edema - Back Exam Back Exam: NORMAL INSPECTION, tenderness (worse on R than L, upon palpation of R flank). absent: CVA tenderness (L), CVA tenderness (R) - Neurological Exam Neurological Exam: Altered, Awake, Oriented x3 - Psychiatric Exam Psychiatric exam: Normal Affect, Normal Mood - Skin Skin Exam: Dry, Intact, Normal Color, Warm Assessment and Plan - Assessment and Plan (Free Text) Assessment: Pt is a 47 year old female with PMH of DM presenting to ED for vague back and abdominal pain that began 2 nights ago. Her blood cultures and urine cultures grew gram - cocci. Pt remains afebrile with no elevation in WBC. Plan: 1) Left Flank Pain, now R sided flank pain with Gram (-) bacteremia and Gram (-) rods in urine: - Afebrile, WBC WNL - Abdominal US pending - CT Abd/Pelvis showed no radiodense urolithiasis, no moderate or prominent hydronephrosis b/l. Recommended f/u with renal US or Contrast CT - Blood/urine culture - both showing gram (-) rods - ID Consulted - Ccontinue rocephin - Toradol prn for pain - NS @ 100cc 2) Anemia - Hg 11.3, consistent with previous baseline - MCV WNL, normocytic - iron studies show that she has decreased Iron, %Saturation and decreased transferrin indicating Fe deficiency anemia 3) Hypokalemia - resolved -repleted -followup labs 4) Hx of DM - A1c = 15.4 - Endocrine consulted, appreciated recs * Humalog 8 units TID after meals * Levemir 20 untis sq QHS 5) PPX with heparin 5K <Gokul Wilson - Last Filed: 03/09/18 17:38> Objective - Vital Signs/Intake and Output Vital Signs (last 24 hours): Temp Pulse Resp BP Pulse Ox 98 F 98 H 18 148/96 H 99 03/09/18 14:00 03/09/18 14:00 03/09/18 14:00 03/09/18 14:00 03/09/18 14:00 Intake and Output: 03/09/18 03/09/18 06:59 18:59 Intake Total 680 Balance 680 - Medications Medications: Current Medications Cyclobenzaprine HCl (Flexeril) 5 mg PO TID [facility] Last Admin: 03/09/18 15:12 Dose: 5 mg Heparin Sodium (Porcine) (Heparin) 5,000 units SC Q8 LILY; Protocol Last Admin: 03/09/18 15:16 Dose: Not Given Sodium Chloride (Sodium Chloride 0.9%) 1,000 mls @ 100 mls/hr IV .Q10H LILY Last Admin: 03/08/18 15:14 Dose: 100 mls/hr Ceftriaxone Sodium (Rocephin 1 Gram Ivpb) 1 gm in 100 mls @ 100 mls/hr IVPB DAILY LILY; Protocol Last Admin: 03/09/18 10:22 Dose: 100 mls/hr Insulin Detemir (Levemir) 20 unit SC HS [facility] Last Admin: 03/08/18 21:48 Dose: 20 units Insulin Human Lispro (Humalog Low) 0 units SC ACHS LILY; Protocol Last Admin: 03/09/18 16:55 Dose: Not Given Insulin Human Lispro (Humalog) 8 units SC AC LILY Last Admin: 03/09/18 16:55 Dose: 8 unit Naproxen (Anaprox Ds) 550 mg PO BID LILY Last Admin: 03/09/18 10:23 Dose: 550 mg - Labs Labs: 03/09/18 06:30 03/09/18 06:30 Attending/Attestation - Attestation I have personally seen and examined this patient.: Yes I have fully participated in the care of the patient.: Yes I have reviewed all pertinent clinical information, including history, physical exam and plan: Yes Notes (Text): 1) Left Flank Pain, now R sided flank pain with Gram (-) bacteremia and Gram (-) rods in urine: partially treated UTI recently consult ID 2) Anemia 3) Hypokalemia - resolved 4) Hx of DM uncontrolled type 2 - A1c = 15.4
[2018-03-08] MEDS: Sodium Chloride 0.9% 1,000 ML IV SCH (15:14)
--- NOTE | 2018-03-08 16:16 | PN ---
DATE: 03/08/2018 ENDO FOLLOWUP NOTE LOCATION: In room 566. SUBJECTIVE: This is a 47-year-old female with recent uncontrolled type 2 insulin-requiring diabetes, presenting here with marked hyperglycemic accelerations and also concomitant acute pyelonephritis, currently undergoing and receiving IV antibiotic management as given. Her glycemic levels are fluctuating, but much improved as noted overnight and the glucose values have ranged from 107 to 237 mg/dL today. Her bedtime glucose was 366 mg/dL. Her chemistry showed a BUN of 18, sodium 137, potassium 3.9, chloride 102, CO2 of 29, glucose 114 and creatinine 1. ASSESSMENT: This is a 47-year-old female with uncontrolled and decompensated type 2 insulin-requiring diabetes at least for this admission as she was previously controlled on oral hypoglycemic therapy, but her A1c levels done with this inpatient admission was 15%. It is clearly indicative of suboptimal metabolic control of her diabetic condition on the prior oral hypoglycemic drug combination as given. With this intercurrent acute pyelonephritis, she clearly needs insulin therapy to optimize her metabolic control thereof. PLAN OF MANAGEMENT: We will continue the basal and bolus insulin drug combination, which is the more physiologic manner of giving insulin to optimize her metabolic control and we will continue her Humalog given as 8 units t.i.d. before meals as ordered to start today. We will also continue the Levemir given as 20 units subcu at bedtime daily to start tonight. We will continue the modified and lower dosing of the Humalog as a correction scale to obviate hypoglycemia and detailed orders have been given. We will also continue the IV hydration as ordered and obtain serial chemistries and supplement accordingly as indicated. We will follow. Yaz Brunner MD
[2018-03-08] MEDS ORDERED: Magnesium Sulfate 1 gm in D5W 1 GM/100 ML BAG IVPB ONE (16:28)
--- NOTE | 2018-03-08 17:16 | CP.PCM.CON ---
History of Present Illness - History of Present Illness History of Present Illness: Infectious Disease Consultation: March 08, 2018 47 yo female with presentation of vague back and abdominal pain for 2 days prior to admission. The patient was found to have gram negative pratima in blood and urine cultures. Pateint with bacteremia and UTI with gram negative rods. Potenitially E. Coli. On Rocephin at this time. Patient states mild improvement. No fevers or leukocytosis since hospitalization started. She has never experienced this type of pain before. She had rated the pain up to 10 out of 10 with pain being a 7 today. PMHx: DM PSHx: in 1999 Allergies: NKDA Social Hx: No tobacco, EtOH, or illicit drug use Active Medications Cyclobenzaprine HCl (Flexeril) 5 mg PO TID COUNT INCLUDES THE [facility] Last Admin: 03/08/18 15:14 Dose: 5 mg Heparin Sodium (Porcine) (Heparin) 5,000 units SC Q8 [facility]; Protocol Last Admin: 03/08/18 15:00 Dose: Not Given Sodium Chloride (Sodium Chloride 0.9%) 1,000 mls @ 100 mls/hr IV .Q10H [facility] Last Admin: 03/08/18 15:14 Dose: 100 mls/hr Ceftriaxone Sodium (Rocephin 1 Gram Ivpb) 1 gm in 100 mls @ 100 mls/hr IVPB DAILY COUNT INCLUDES THE [facility]; Protocol Last Admin: 03/08/18 09:59 Dose: 100 mls/hr Magnesium Sulfate/Dextrose (Magnesium Sulfate 1 Gm/100 Ml D5w) 1 gm in 100 mls @ 100 mls/hr IVPB ONCE ONE Stop: 03/08/18 17:27 Insulin Detemir (Levemir) 20 unit SC HS COUNT INCLUDES THE [facility] Last Admin: 03/07/18 21:37 Dose: 20 units Insulin Human Lispro (Humalog Low) 0 units SC ACHS [facility]; Protocol Last Admin: 03/08/18 16:53 Dose: Not Given Insulin Human Lispro (Humalog) 8 units SC AC [facility] Last Admin: 03/08/18 16:55 Dose: Not Given Naproxen (Anaprox Ds) 550 mg PO BID COUNT INCLUDES THE [facility] Last Admin: 03/08/18 11:05 Dose: 550 mg Family Hx: HTN and DM in the family ROS: LMP 2 days prior to admission No fevers, chills, headaches, dizziness, chest pain, abdominal pain, melena, hematuria, hematemesis, hematochezia, depression, anxiety, vision loss, hearing loss, loss of consciousness. Abdominal pain - diffuse. Past Patient History - Infectious Disease Hx of Infectious Diseases: None - Tetanus Immunizations Tetanus Immunization: Unknown - Past Social History Smoking Status: Never Smoked - CARDIAC Hx Cardiac Disorders: No - PULMONARY Hx Respiratory Disorders: No - NEUROLOGICAL Hx Neurological Disorder: No - HEENT Hx HEENT Problems: No - RENAL Hx Chronic Kidney Disease: No - ENDOCRINE/METABOLIC Hx Endocrine Disorders: Yes Hx Diabetes Mellitus Type 2: Yes - HEMATOLOGICAL/ONCOLOGICAL Hx Blood Disorders: No - INTEGUMENTARY Hx Dermatological Problems: No - MUSCULOSKELETAL/RHEUMATOLOGICAL Hx Musculoskeletal Disorders: No Hx Falls: No - GASTROINTESTINAL Hx Gastrointestinal Disorders: No - GENITOURINARY/GYNECOLOGICAL Hx Genitourinary Disorders: No - PSYCHIATRIC Hx Psychophysiologic Disorder: No - SURGICAL HISTORY Hx Surgeries: Yes - ANESTHESIA Hx Anesthesia: Yes Hx Anesthesia Reactions: No Hx Malignant Hyperthermia: No Meds Allergies/Adverse Reactions: Allergies Allergy/AdvReac Type Severity Reaction Status Date / Time No Known Allergies Allergy Verified 03/07/18 02:32 - Medications Medications: Current Medications Cyclobenzaprine HCl (Flexeril) 5 mg PO TID COUNT INCLUDES THE [facility] Last Admin: 03/08/18 15:14 Dose: 5 mg Heparin Sodium (Porcine) (Heparin) 5,000 units SC Q8 [facility]; Protocol Last Admin: 03/08/18 15:00 Dose: Not Given Sodium Chloride (Sodium Chloride 0.9%) 1,000 mls @ 100 mls/hr IV .Q10H [facility] Last Admin: 03/08/18 15:14 Dose: 100 mls/hr Ceftriaxone Sodium (Rocephin 1 Gram Ivpb) 1 gm in 100 mls @ 100 mls/hr IVPB DAILY COUNT INCLUDES THE [facility]; Protocol Last Admin: 03/08/18 09:59 Dose: 100 mls/hr Magnesium Sulfate/Dextrose (Magnesium Sulfate 1 Gm/100 Ml D5w) 1 gm in 100 mls @ 100 mls/hr IVPB ONCE ONE Stop: 03/08/18 17:27 Insulin Detemir (Levemir) 20 unit SC HS COUNT INCLUDES THE [facility] Last Admin: 03/07/18 21:37 Dose: 20 units Insulin Human Lispro (Humalog Low) 0 units SC ACHS [facility]; Protocol Last Admin: 03/08/18 16:53 Dose: Not Given Insulin Human Lispro (Humalog) 8 units SC AC COUNT INCLUDES THE [facility] Last Admin: 03/08/18 16:55 Dose: Not Given Naproxen (Anaprox Ds) 550 mg PO BID COUNT INCLUDES THE [facility] Last Admin: 03/08/18 11:05 Dose: 550 mg Physical Exam - Constitutional Appears: Non-toxic, No Acute Distress - Head Exam Head Exam: ATRAUMATIC, NORMOCEPHALIC - Eye Exam Eye Exam: EOMI, PERRL Pupil Exam: NORMAL ACCOMODATION, PERRL - ENT Exam ENT Exam: Mucous Membranes Moist, Normal External Ear Exam, TM's Normal Bilaterally - Neck Exam Neck exam: Positive for: Full Rom, Normal Inspection - Respiratory Exam Respiratory Exam: Clear to Auscultation Bilateral, NORMAL BREATHING PATTERN. absent: Rales, Rhonchi, Wheezes - Cardiovascular Exam Cardiovascular Exam: REGULAR RHYTHM, RRR, +S1, +S2 - GI/Abdominal Exam GI & Abdominal Exam: Normal Bowel Sounds, Tenderness. absent: Firm, Guarding Additional comments: LLQ tenderness appreciated to deep palpation - Extremities Exam Extremities exam: Positive for: normal inspection - Neurological Exam Neurological exam: Alert, CN II-XII Intact, Oriented x3 - Psychiatric Exam Psychiatric exam: Normal Affect, Normal Mood - Skin Skin Exam: Normal Color, Warm Results - Vital Signs Recent Vital Signs: Last Vital Signs Temp 98 F 03/07/18 23:01 Pulse 98 H 03/07/18 23:01 Resp 16 03/07/18 23:01 BP 138/85 03/07/18 23:01 Pulse Ox 100 03/07/18 23:01 - Labs Result Diagrams: 03/08/18 07:00 03/08/18 07:00 Labs: Laboratory Results - last 24 hr 03/07/18 03/08/18 03/08/18 21:26 06:38 07:00 WBC 9.0 RBC 3.50 Hgb 9.7 L Hct 29.7 L MCV 84.9 MCH 27.7 MCHC 32.7 RDW 12.2 Plt Count 461 H MPV 10.3 Gran % 68.1 H Lymph % (Auto) 21.2 L Hayes % (Auto) 7.2 H Eos % (Auto) 3.2 Baso % (Auto) 0.3 Gran # 6.10 Lymph # (Auto) 1.9 Hayes # (Auto) 0.7 H Eos # (Auto) 0.3 Baso # (Auto) 0.03 Sodium Potassium Chloride Carbon Dioxide Anion Gap BUN Creatinine Est GFR ( Amer) Est GFR (Non-Af Amer) POC Glucose (mg/dL) 366 H 107 Random Glucose Calcium Phosphorus Magnesium Total Bilirubin AST ALT Alkaline Phosphatase Total Protein Albumin Globulin Albumin/Globulin Ratio 03/08/18 03/08/18 03/08/18 07:00 11:23 15:54 WBC RBC Hgb Hct MCV MCH MCHC RDW Plt Count MPV Gran % Lymph % (Auto) Hayes % (Auto) Eos % (Auto) Baso % (Auto) Gran # Lymph # (Auto) Hayes # (Auto) Eos # (Auto) Baso # (Auto) Sodium 137 Potassium 3.9 Chloride 102 Carbon Dioxide 29 Anion Gap 9 L BUN 18 Creatinine 1.0 Est GFR ( Amer) > 60 Est GFR (Non-Af Amer) 60 POC Glucose (mg/dL) 237 H 111 H Random Glucose 114 H Calcium 7.7 L Phosphorus 3.1 Magnesium 1.5 L Total Bilirubin 0.1 L AST 57 H D ALT 40 Alkaline Phosphatase 278 H D Total Protein 6.2 Albumin 2.8 L Globulin 3.4 Albumin/Globulin Ratio 0.8 L Assessment & Plan - Assessment and Plan (Free Text) Assessment: 47 yo female with gram negative pratima bacteremia and UTI. Currently on Rocephin. Afebrile and without Leukocytosis. Mild improvement. If the patient is not showing improvement with Rocephin, may need to broaden antibiotic coverage to Cefepime instead. Donald cultures identification and sensitivity pending. Awaiting identification at the very least. Supportive care. Thank you for allowing me to participate in the care of the patient, we will follow with you.
[2018-03-08] MEDS: Insulin Detemir 100 units/ml Vial (Levemir) SC SCH (21:48)
[2018-03-09 07:17] LABS: BASO # 0.05 K/mm3 (0.0-2.0); BASO % 0.7 % (0.0-3.0); EOS # 0.4 (0.0-0.7); EOS % 5.1 % (1.5-5.0); GRAN # 3.66 (1.4-6.5); GRAN % 53.6 % (50.0-68.0); HEMOGLOBIN 10.1 g/dL (12.0-16.0); LYMPH # 2.3 (1.2-3.4); LYMPH % 34.2 % (22.0-35.0); MEAN CELL VOLUME 84.8 fl (80.0-105.0); MEAN CORPUSCULAR HEMOGLOBIN 27.8 pg (25.0-35.0); MEAN CORPUSCULAR HGB CONC 32.8 g/dl (31.0-37.0); MEAN PLATELET VOLUME 9.8 fl (7.0-11.0); MONO # 0.4 (0.1-0.6); MONO % 6.4 % (1.0-6.0); RBC 3.63 10^6/uL (3.5-6.1); RED CELL DISTRIBUTION WIDTH 12.3 % (11.5-14.5); WHITE BLOOD COUNT 6.8 10^3/ul (4.5-11.0)
[2018-03-09 07:20] LABS: ALB/GLOB RATIO 0.8 (1.1-1.8); ALBUMIN 2.8 g/dL (3.0-4.8); ALT/SGPT 41 U/L (7-56); AST/SGOT 61 U/L (14-36); BLOOD UREA NITROGEN 18 mg/dL (7-21); CALCIUM 7.9 mg/dL (8.4-10.5); GFR NON-AFRICAN AMERICAN > 60
[2018-03-09] MEDS: Insulin Lispro 1 UNITS/0.01 ML SC SCH ×3 (08:20→16:55)
[2018-03-09] MEDS: Insulin Lispro (humaLOG) LOW Coverage SC SCH ×4 (08:20→21:38)
[2018-03-09] MEDS: cefTRIAXone 1 gm 1 GM/100 ML BAG IVPB SCH (10:22)
[2018-03-09] MEDS: Naproxen 550 mg Tab PO SCH ×2 (10:23→17:42)
--- NOTE | 2018-03-09 12:54 | CP.PCM.PN ---
<Franca Guadlaupeah - Last Filed: 03/09/18 15:01> Subjective - Date & Time of Evaluation Date of Evaluation: 03/09/18 Time of Evaluation: 09:30 - Subjective Subjective: Progress note for Dr. Verónica Keller Patient seen and examined this am at bedside. She states that she is feeling better and denies any current complaints. She otherwise denies n/v, f/v, worsening back pain, TEIXEIRA, CP, SOB, abdominal pain, and extremity pain. She denice nues to c/o mild migratory back pain that is relieved with flexaril. Objective - Vital Signs/Intake and Output Vital Signs (last 24 hours): Temp Pulse Resp BP Pulse Ox 97.5 F L 97 H 20 159/99 H 99 03/09/18 06:00 03/09/18 06:00 03/09/18 06:00 03/09/18 06:00 03/09/18 06:00 Intake and Output: 03/09/18 03/09/18 06:59 18:59 Intake Total 680 Balance 680 - Medications Medications: Current Medications Cyclobenzaprine HCl (Flexeril) 5 mg PO TID [facility] Last Admin: 03/09/18 10:23 Dose: 5 mg Heparin Sodium (Porcine) (Heparin) 5,000 units SC Q8 [facility]; Protocol Last Admin: 03/09/18 06:31 Dose: 5,000 units Sodium Chloride (Sodium Chloride 0.9%) 1,000 mls @ 100 mls/hr IV .Q10H [facility] Last Admin: 03/08/18 15:14 Dose: 100 mls/hr Ceftriaxone Sodium (Rocephin 1 Gram Ivpb) 1 gm in 100 mls @ 100 mls/hr IVPB DAILY [facility]; Protocol Last Admin: 03/09/18 10:22 Dose: 100 mls/hr Insulin Detemir (Levemir) 20 unit SC HS [facility] Last Admin: 03/08/18 21:48 Dose: 20 units Insulin Human Lispro (Humalog Low) 0 units SC ACHS [facility]; Protocol Last Admin: 03/09/18 08:20 Dose: Not Given Insulin Human Lispro (Humalog) 8 units SC AC [facility] Last Admin: 03/09/18 08:20 Dose: Not Given Naproxen (Anaprox Ds) 550 mg PO BID [facility] Last Admin: 03/09/18 10:23 Dose: 550 mg - Labs Labs: 03/09/18 06:30 03/09/18 06:30 - Constitutional Appears: Well, Non-toxic, No Acute Distress - Head Exam Head Exam: ATRAUMATIC, NORMOCEPHALIC - Eye Exam Eye Exam: EOMI - ENT Exam ENT Exam: Mucous Membranes Moist - Respiratory Exam Respiratory Exam: NORMAL BREATHING PATTERN - Cardiovascular Exam Cardiovascular Exam: Clicks - GI/Abdominal Exam GI & Abdominal Exam: Soft. absent: Distended, Firm, Guarding, Rigid, Tenderness - Extremities Exam Extremities Exam: Normal Capillary Refill. absent: Calf Tenderness, Pedal Edema - Back Exam Back Exam: absent: CVA tenderness (L), CVA tenderness (R) - Neurological Exam Neurological Exam: Alert, Awake, Oriented x3 - Psychiatric Exam Psychiatric exam: Normal Affect, Normal Mood - Skin Skin Exam: Dry, Intact, Normal Color, Rash, Warm Additional comments: rash improving Assessment and Plan - Assessment and Plan (Free Text) Assessment: Pt is a 47 year old female with PMH of DM presenting to ED for vague back and abdominal pain that began 3 nights ago. Her blood cultures and urine cultures grew gram - cocci. Pt remains afebrile with no elevation in WBC. Plan: 1) Left Flank Pain, now R sided flank pain with Gram (-) bacteremia and Gram (-) rods in urine: - Afebrile, WBC WNL - Abdominal US pending - CT Abd/Pelvis showed no radiodense urolithiasis, no moderate or prominent hydronephrosis b/l. Recommended f/u with renal US or Contrast CT - Blood/urine culture - both showing gram (-) rods - ID Consulted, changed abx to Cefepime - Toradol prn for pain - NS @ 100cc - awaiting repeat blood cx results 2) Anemia - Hg 10.1, consistent with previous baseline - MCV WNL, normocytic - iron studies show that she has decreased Iron, %Saturation and decreased transferrin indicating Fe deficiency anemia 4) Hx of DM - A1c = 15.4 - Endocrine consulted, appreciated recs Humalog 8 units TID after meals Levemir 20 untis sq QHS SSI low 5) PPX with heparin 5K Pt seen and discussed with Dr. Krishna Guadalupe, PGY 1 <Keller,Verónica R - Last Filed: 03/10/18 18:57> Objective - Vital Signs/Intake and Output Vital Signs (last 24 hours): Temp Pulse Resp BP Pulse Ox 97.9 F 103 H 20 146/97 H 97 03/10/18 14:00 03/10/18 14:00 03/10/18 14:00 03/10/18 14:00 03/10/18 14:00 - Medications Medications: Current Medications Cyclobenzaprine HCl (Flexeril) 5 mg PO TID [facility] Last Admin: 03/10/18 18:01 Dose: 5 mg Heparin Sodium (Porcine) (Heparin) 5,000 units SC Q8 [facility]; Protocol Last Admin: 03/10/18 14:28 Dose: 5,000 units Ceftriaxone Sodium (Rocephin 1 Gram Ivpb) 1 gm in 100 mls @ 100 mls/hr IVPB DAILY [facility]; Protocol Last Admin: 03/10/18 10:36 Dose: 100 mls/hr Insulin Detemir (Levemir) 20 unit SC HS [facility] Last Admin: 03/09/18 21:36 Dose: 20 units Insulin Human Lispro (Humalog Low) 0 units SC ACHS [facility]; Protocol Last Admin: 03/10/18 18:02 Dose: Not Given Insulin Human Lispro (Humalog) 8 units SC AC [facility] Last Admin: 03/10/18 18:01 Dose: 8 unit Naproxen (Anaprox Ds) 550 mg PO BID [facility] Last Admin: 03/10/18 18:01 Dose: 550 mg - Labs Labs: 03/10/18 06:45 03/10/18 06:45 Attending/Attestation - Attestation I have personally seen and examined this patient.: Yes I have fully participated in the care of the patient.: Yes I have reviewed all pertinent clinical information, including history, physical exam and plan: Yes Notes (Text): Patient seen and examined by me with resident at 11AM on 03/09/18 with reside nt. Case including HPI, physical exam, and assessment and plan discussed with resident. Agree with above with following additions/corrections. Patient is a 47-year-old female past medical history significant for type 2 diabetes that presented to the emergency room with vague back pain and abdominal pain. Patient states she is feeling better. Back pain improved. Left flank pain improved. Abdominal pain resolved. No nausea or vomiting. No headaches or dizziness. No chest pain or shortness of breath. No fevers or chills. No dysuria. No diarrhea or constipation. Physical exam: General: Awake and alert lying in bed in no acute distress HEENT: Normocephalic atraumatic. Extra ocular muscles intact. Pupils equal and reactive. No scleral icterus. Oropharynx is pink and moist. No pharyngeal erythema or exudate appreciated. Cardiovascular: Normal rhythm. Normal S1, S2. No murmurs, rubs, or gallops appreciated Pulmonary: Normal respiratory effort. No rhonchi, rales or wheezing appreciated. Gastrointestinal: Soft, nondistended. Nontender. Positive bowel sounds all 4 quadrants, no guarding. Musculoskeletal: Moves all extremities, no calf tenderness. No edema appreciated. No CVA tenderness. Positive thoracic and lumbar paraspinal muscle tenderness. Central nervous system: AAOx3. CN2-12 grossly intact. 5/5 muscle strength all extremities. Dermatologic: Skin warm and dry. Assessment and plan: Patient is a 47-year-old female past medical history significant for type 2 diabetes that presented to the emergency room with vague back pain and abdominal pain. 1. Gram negatives bacteremia. Urine and blood cultures positive for gram- negative rods. Pending final results of cultures and sensitivities. Abdominal ultrasound on 03/07/2018 per radiology showed 3.8 cm echogenic mass in right lobe of liver, diffusely increased cortical echogenicity of the right kidney, no hydronephrosis. CT abdomen and pelvis on 03/07/2018 per radiologist showed no radiodense urolithiasis bilaterally, no moderate to prominent hydronephrosis bilaterally, 4.2 likely benign hemangioma identified at the dome of the liver somewhat larger in the interval, limited pelvic fluid suspected of uncertain etiology, minimal bilateral pleural effusions identified. ID following, recommendations appreciated. Continue Rocephin. 2. UTI. Urine culture positive for gram-negative rods. Final culture pending. Continue Rocephin. 3. DM 2 with hyperglycemia. Hemoglobin A1c 15.4. Endocrinology following, recommendations appreciated. Hyperglycemia improved. Continue Levemir 20 units at bedtime. Continue Humalog 8 units before meals. Continue insulin sliding scale. Monitor Accu-Cheks. 4. Back pain and flank pain. Improved. Continue Flexeril and naproxen. 5. Anemia. H&H stable. Continue to monitor CBC. Case discussed in detail with the patient regarding current diagnosis and treatment plan. All questions answered.
--- NOTE | 2018-03-09 16:24 | PN ---
DATE: 03/09/2018 ENDO FOLLOWUP NOTE LOCATION: In room 566. SUBJECTIVE: This is a 47-year-old female with recent uncontrolled type 2, insulin-requiring diabetes with ongoing IV antibiotic management for acute pyelonephritis and is now being followed closely for metabolic management. Her glycemic levels are fluctuating, but improved and the glucose values have ranged from 148-154 mg/dL today and it was 298 at bedtime last night. The chemistry showed a BUN of 18, sodium 138, potassium 4.1, chloride 104, CO2 of 31, glucose 138 and creatinine 0.9. So, at this time, we will continue the present basal and bolus insulin regimen to allow for dose equilibration and keep her on the Humalog given as 8 units subcu t.i.d. before meals as ordered. We will continue the Levemir given as 20 units subcu at bedtime daily to start tonight. We will continue also the IV hydration as given to fully replenish the lost fluid and electrolytes . We will follow. Yaz Brunner MD
--- NOTE | 2018-03-09 18:38 | CP.PCM.PN ---
Subjective - Date & Time of Evaluation Date of Evaluation: 03/09/18 Time of Evaluation: 17:30 - Subjective Subjective: Infectious Disease Consultation: March 09, 2018 47 yo female with presentation of vague back and abdominal pain for 2 days prior to admission. The patient was found to have gram negative pratima in blood and u rine cultures. Pateint with bacteremia and UTI with gram negative rods. Potenitially E. Coli. On Rocephin at this time. Patient states mild improvement. No fevers or leukocytosis since hospitalization started. She has never experienced this type of pain before. She had rated the pain up to 10 out of 10 with pain being a 7 today. Confirmed E. coli growth today. Objective - Vital Signs/Intake and Output Vital Signs (last 24 hours): Temp Pulse Resp BP Pulse Ox 98 F 98 H 18 148/96 H 99 03/09/18 14:00 03/09/18 14:00 03/09/18 14:00 03/09/18 14:00 03/09/18 14:00 Intake and Output: 03/09/18 03/09/18 06:59 18:59 Intake Total 680 Balance 680 - Medications Medications: Current Medications Cyclobenzaprine HCl (Flexeril) 5 mg PO TID [facility] Last Admin: 03/09/18 17:42 Dose: 5 mg Heparin Sodium (Porcine) (Heparin) 5,000 units SC Q8 [facility]; Protocol Last Admin: 03/09/18 15:16 Dose: Not Given Sodium Chloride (Sodium Chloride 0.9%) 1,000 mls @ 100 mls/hr IV .Q10H [facility] Last Admin: 03/08/18 15:14 Dose: 100 mls/hr Ceftriaxone Sodium (Rocephin 1 Gram Ivpb) 1 gm in 100 mls @ 100 mls/hr IVPB DAILY [facility]; Protocol Last Admin: 03/09/18 10:22 Dose: 100 mls/hr Insulin Detemir (Levemir) 20 unit SC HS [facility] Last Admin: 03/08/18 21:48 Dose: 20 units Insulin Human Lispro (Humalog Low) 0 units SC ACHS [facility]; Protocol Last Admin: 03/09/18 16:55 Dose: Not Given Insulin Human Lispro (Humalog) 8 units SC AC [facility] Last Admin: 03/09/18 16:55 Dose: 8 unit Naproxen (Anaprox Ds) 550 mg PO BID [facility] Last Admin: 03/09/18 17:42 Dose: 550 mg - Labs Labs: 03/09/18 06:30 03/09/18 06:30 - Constitutional Appears: Non-toxic, No Acute Distress - Head Exam Head Exam: ATRAUMATIC, NORMOCEPHALIC - Eye Exam Eye Exam: EOMI, PERRL Pupil Exam: NORMAL ACCOMODATION, PERRL - ENT Exam ENT Exam: Mucous Membranes Moist, Normal External Ear Exam, TM's Normal Bilaterally - Neck Exam Neck Exam: Full ROM, Normal Inspection - Respiratory Exam Respiratory Exam: Clear to Ausculation Bilateral, NORMAL BREATHING PATTERN. absent: Rales, Rhonchi, Wheezes - Cardiovascular Exam Cardiovascular Exam: REGULAR RHYTHM, RRR, +S1, +S2 - GI/Abdominal Exam GI & Abdominal Exam: Tenderness, Normal Bowel Sounds Additional comments: LLQ tenderness appreciated to deep palpation - Extremities Exam Extremities Exam: Full ROM, Normal Inspection. absent: Joint Swelling, Pedal Edema - Neurological Exam Neurological Exam: Alert, Awake, CN II-XII Intact, Oriented x3 - Psychiatric Exam Psychiatric exam: Normal Affect, Normal Mood - Skin Skin Exam: Intact, Normal Color Assessment and Plan - Assessment and Plan (Free Text) Assessment: 47 yo female with gram negative pratima bacteremia and UTI. Currently on Rocephin. Afebrile and without Leukocytosis. Mild improvement. If the patient is not showing improvement with Rocephin, may need to broaden antibiotic coverage to Cefepime instead. E. coli in cultures. Highly sensitive to antibiotics. Awaiting identification at the very least. Supportive care. Thank you for allowing me to participate in the care of the patient, we will follow with you.
[2018-03-09] MEDS: Insulin Detemir 100 units/ml Vial (Levemir) SC SCH (21:36)
[2018-03-10 07:10] LABS: BASO # 0.06 K/mm3 (0.0-2.0); BASO % 0.6 % (0.0-3.0); EOS # 0.5 (0.0-0.7); EOS % 4.3 % (1.5-5.0); GRAN # 6.41 (1.4-6.5); GRAN % 59.3 % (50.0-68.0); HEMOGLOBIN 11.4 g/dL (12.0-16.0); LYMPH # 3.4 (1.2-3.4); LYMPH % 31.7 % (22.0-35.0); MEAN CELL VOLUME 85.4 fl (80.0-105.0); MEAN CORPUSCULAR HEMOGLOBIN 28.2 pg (25.0-35.0); MEAN PLATELET VOLUME 9.8 fl (7.0-11.0); MONO # 0.4 (0.1-0.6); MONO % 4.1 % (1.0-6.0); RBC 4.04 10^6/uL (3.5-6.1); RED CELL DISTRIBUTION WIDTH 12.3 % (11.5-14.5); WHITE BLOOD COUNT 10.8 10^3/uL (4.5-11.0)
[2018-03-10] MEDS: Insulin Lispro (humaLOG) LOW Coverage SC SCH ×4 (07:35→21:41)
[2018-03-10] MEDS: Insulin Lispro 1 UNITS/0.01 ML SC SCH ×3 (07:35→18:01)
[2018-03-10 07:55] LABS: ALB/GLOB RATIO 0.8 (1.1-1.8); ALBUMIN 3.2 g/dL (3.0-4.8); ALT/SGPT 48 U/L (7-56); AST/SGOT 57 U/L (14-36); BLOOD UREA NITROGEN 19 mg/dL (7-21); CALCIUM 8.8 mg/dL (8.4-10.5); GFR NON-AFRICAN AMERICAN > 60
[2018-03-10] MEDS: Naproxen 550 mg Tab PO SCH ×2 (10:34→18:01)
[2018-03-10] MEDS: cefTRIAXone 1 gm 1 GM/100 ML BAG IVPB SCH (10:36)
[2018-03-10] MEDS ORDERED: Potassium Chloride 20 mEq ER Tab PO ONE (10:53)
[2018-03-10] MEDS: Sodium Chloride 0.9% 1,000 ML IV SCH (12:17)
--- NOTE | 2018-03-10 15:13 | CP.PCM.PN ---
Subjective - Date & Time of Evaluation Date of Evaluation: 03/10/18 Time of Evaluation: 13:45 - Subjective Subjective: Infectious Disease Consultation: March 09, 2018 47 yo female with presentation of vague back and abdominal pain for 2 days prior to admission. The patient was found to have gram negative pratima in blood and u rine cultures. Pateint with bacteremia and UTI with gram negative rods. Potenitially E. Coli. On Rocephin at this time. Patient states mild improvement. No fevers or leukocytosis since hospitalization started. She has never experienced this type of pain before. She had rated the pain up to 10 out of 10 with pain being a 7 on initial admission. Confirmed E. coli growth. Overall, the patient is feeling better. Objective - Vital Signs/Intake and Output Vital Signs (last 24 hours): Temp Pulse Resp BP Pulse Ox 97.9 F 103 H 20 146/97 H 97 03/10/18 14:00 03/10/18 14:00 03/10/18 14:00 03/10/18 14:00 03/10/18 14:00 - Medications Medications: Current Medications Cyclobenzaprine HCl (Flexeril) 5 mg PO TID [facility] Last Admin: 03/10/18 14:28 Dose: 5 mg Heparin Sodium (Porcine) (Heparin) 5,000 units SC Q8 [facility]; Protocol Last Admin: 03/10/18 14:28 Dose: 5,000 units Sodium Chloride (Sodium Chloride 0.9%) 1,000 mls @ 100 mls/hr IV .Q10H [facility] Last Admin: 03/10/18 12:17 Dose: Not Given Ceftriaxone Sodium (Rocephin 1 Gram Ivpb) 1 gm in 100 mls @ 100 mls/hr IVPB DAILY [facility]; Protocol Last Admin: 03/10/18 10:36 Dose: 100 mls/hr Insulin Detemir (Levemir) 20 unit SC HS [facility] Last Admin: 03/09/18 21:36 Dose: 20 units Insulin Human Lispro (Humalog Low) 0 units SC ACHS [facility]; Protocol Last Admin: 03/10/18 12:16 Dose: Not Given Insulin Human Lispro (Humalog) 8 units SC AC [facility] Last Admin: 03/10/18 12:16 Dose: 8 unit Naproxen (Anaprox Ds) 550 mg PO BID [facility] Last Admin: 03/10/18 10:34 Dose: 550 mg - Labs Labs: 03/10/18 06:45 03/10/18 06:45 - Constitutional Appears: Non-toxic, No Acute Distress, Chronically Ill - Head Exam Head Exam: ATRAUMATIC, NORMOCEPHALIC - Eye Exam Eye Exam: EOMI, PERRL Pupil Exam: NORMAL ACCOMODATION, PERRL - ENT Exam ENT Exam: Mucous Membranes Moist, Normal External Ear Exam, TM's Normal Bilaterally - Neck Exam Neck Exam: Full ROM, Normal Inspection - Respiratory Exam Respiratory Exam: Clear to Ausculation Bilateral, NORMAL BREATHING PATTERN. absent: Rales, Rhonchi, Wheezes - Cardiovascular Exam Cardiovascular Exam: REGULAR RHYTHM, RRR, +S1, +S2 - GI/Abdominal Exam GI & Abdominal Exam: Tenderness, Normal Bowel Sounds Additional comments: LLQ tenderness appreciated to deep palpation - Extremities Exam Extremities Exam: Full ROM, Normal Inspection. absent: Joint Swelling, Pedal Edema - Neurological Exam Neurological Exam: Alert, Awake, CN II-XII Intact, Oriented x3 - Psychiatric Exam Psychiatric exam: Normal Affect, Normal Mood - Skin Skin Exam: Intact, Normal Color Assessment and Plan - Assessment and Plan (Free Text) Assessment: 47 yo female with gram negative pratima bacteremia and UTI. Currently on Rocephin. Afebrile and without Leukocytosis. Showing improvement. E. coli in cultures. Can consider at least 14 days of antibiotics. Can consider switch to oral Keflex 500mg TID for 14 days on discharge. Awaiting identification at the very least. Supportive care. Thank you for allowing me to participate in the care of the patient, we will follow with you.
[2018-03-10 15:22] LABS: PH,URINE 6.5 (4.7-8.0); URINE BILIRUBIN NEGATIVE (NEGATIVE); URINE BLOOD TRACE-INTACT (NEGATIVE); URINE GLUCOSE (UA) 100 mg/dL (NEGATIVE); URINE LEUKOCYTE ESTERASE NEGATIVE Leu/uL (NEGATIVE); URINE PROTEIN 100 mg/dL (<30 mg/dL); URINE UROBILINOGEN 0.2 E.U./dL (<1 E.U./dL)
[2018-03-10 15:29] LABS: URINE APPEARANCE SLIGHT-CLOUDY (CLEAR); URINE COLOR YELLOW (YELLOW)
--- NOTE | 2018-03-10 15:47 | CP.PCM.PN ---
<Shelton Aguirre - Last Filed: 03/10/18 15:43> Subjective - Date & Time of Evaluation Date of Evaluation: 03/10/18 Time of Evaluation: 15:44 - Subjective Subjective: Resident Shelton Aguirre DO PGY-[address] Melvin Keller Pt was seen and examined today at bedside. Pt states that she is feeling better and states that the pain in her back is still present but not as strong. She denies any fevers, chills, nausea, vomiting. She states that she is able to tolerate her diet and has no acute somatic complaints at this time. Objective - Vital Signs/Intake and Output Vital Signs (last 24 hours): Temp Pulse Resp BP Pulse Ox 97.9 F 103 H 20 146/97 H 97 03/10/18 14:00 03/10/18 14:00 03/10/18 14:00 03/10/18 14:00 03/10/18 14:00 - Medications Medications: Current Medications Cyclobenzaprine HCl (Flexeril) 5 mg PO TID [facility] Last Admin: 03/10/18 14:28 Dose: 5 mg Heparin Sodium (Porcine) (Heparin) 5,000 units SC Q8 [facility]; Protocol Last Admin: 03/10/18 14:28 Dose: 5,000 units Sodium Chloride (Sodium Chloride 0.9%) 1,000 mls @ 100 mls/hr IV .Q10H [facility] Last Admin: 03/10/18 12:17 Dose: Not Given Ceftriaxone Sodium (Rocephin 1 Gram Ivpb) 1 gm in 100 mls @ 100 mls/hr IVPB DAILY [facility]; Protocol Last Admin: 03/10/18 10:36 Dose: 100 mls/hr Insulin Detemir (Levemir) 20 unit SC HS [facility] Last Admin: 03/09/18 21:36 Dose: 20 units Insulin Human Lispro (Humalog Low) 0 units SC ACHS [facility]; Protocol Last Admin: 03/10/18 12:16 Dose: Not Given Insulin Human Lispro (Humalog) 8 units SC AC [facility] Last Admin: 03/10/18 12:16 Dose: 8 unit Naproxen (Anaprox Ds) 550 mg PO BID [facility] Last Admin: 03/10/18 10:34 Dose: 550 mg - Labs Labs: 03/10/18 06:45 03/10/18 06:45 - Constitutional Appears: Well, Non-toxic, No Acute Distress - Head Exam Head Exam: ATRAUMATIC, NORMAL INSPECTION, NORMOCEPHALIC - Eye Exam Eye Exam: EOMI, Normal appearance, PERRL - Respiratory Exam Respiratory Exam: Clear to Ausculation Bilateral, NORMAL BREATHING PATTERN. absent: Accessory Muscle Use, Rales, Rhonchi, Wheezes, Respiratory Distress - Cardiovascular Exam Cardiovascular Exam: RRR, +S1, +S2. absent: Gallop, Rubs - GI/Abdominal Exam GI & Abdominal Exam: Soft, Normal Bowel Sounds. absent: Guarding, Rigid, Tenderness - Extremities Exam Extremities Exam: Full ROM, Normal Capillary Refill, Normal Inspection. absent: Calf Tenderness, Joint Swelling, Pedal Edema - Back Exam Back Exam: NORMAL INSPECTION. absent: CVA tenderness (L), CVA tenderness (R) - Neurological Exam Neurological Exam: Alert, Awake, Oriented x3 - Psychiatric Exam Psychiatric exam: Normal Affect, Normal Mood - Skin Skin Exam: Intact, Normal Color, Warm Assessment and Plan - Assessment and Plan (Free Text) Assessment: Pt is a 47 year old female with PMH of DM presenting to ED for vague back and abdominal pain that began 2 nights before admission. Her blood cultures and urine cultures grew gram - cocci. Pt remains afebrile with no elevation in WBC. Plan: 1) Left Flank Pain, now R sided flank pain with Gram (-) bacteremia and Gram (-) rods in urine: - Afebrile, WBC WNL - Abdominal US - No hydronephrosis - CT Abd/Pelvis showed no radiodense urolithiasis, no moderate or prominent hydronephrosis b/l. Recommended f/u with renal US or Contrast CT - Blood/urine culture - both showing gram (-) rods - ID Consulted - Noted their recs, and stated that can be d/nicole on Keflex 500mg TID for 14 days. - Continue rocephin while inpt per ID - Toradol prn for pain - NS @ 100cc 2) Anemia - Hg 11.3, consistent with previous baseline - MCV WNL, normocytic - iron studies show that she has decreased Iron, %Saturation and decreased transferrin indicating Fe deficiency anemia 3) Hypokalemia - recurred - K = 3.2, repleted -followup labs 4) Hx of DM - A1c = 15.4 - Endocrine consulted, appreciated recs * Humalog 8 units TID after meals * Levemir 20 untis sq QHS 5) PPX with heparin 5K <Verónica Keller R - Last Filed: 03/10/18 19:01> Objective - Vital Signs/Intake and Output Vital Signs (last 24 hours): Temp Pulse Resp BP Pulse Ox 97.9 F 103 H 20 146/97 H 97 03/10/18 14:00 03/10/18 14:00 03/10/18 14:00 03/10/18 14:00 03/10/18 14:00 - Medications Medications: Current Medications Cyclobenzaprine HCl (Flexeril) 5 mg PO TID [facility] Last Admin: 03/10/18 18:01 Dose: 5 mg Heparin Sodium (Porcine) (Heparin) 5,000 units SC Q8 [facility]; Protocol Last Admin: 03/10/18 14:28 Dose: 5,000 units Ceftriaxone Sodium (Rocephin 1 Gram Ivpb) 1 gm in 100 mls @ 100 mls/hr IVPB DAILY [facility]; Protocol Last Admin: 03/10/18 10:36 Dose: 100 mls/hr Insulin Detemir (Levemir) 20 unit SC HS [facility] Last Admin: 03/09/18 21:36 Dose: 20 units Insulin Human Lispro (Humalog Low) 0 units SC ACHS [facility]; Protocol Last Admin: 03/10/18 18:02 Dose: Not Given Insulin Human Lispro (Humalog) 8 units SC AC [facility] Last Admin: 03/10/18 18:01 Dose: 8 unit Naproxen (Anaprox Ds) 550 mg PO BID [facility] Last Admin: 03/10/18 18:01 Dose: 550 mg - Labs Labs: 03/10/18 06:45 03/10/18 06:45 Attending/Attestation - Attestation I have personally seen and examined this patient.: Yes I have fully participated in the care of the patient.: Yes I have reviewed all pertinent clinical information, including history, physical exam and plan: Yes Notes (Text): Patient seen and examined by me with resident at 2:55PM on 03/10/18 with resident. Case including HPI, physical exam, and assessment and plan discussed with resident. Agree with above with following additions/corrections. Patient is a 47-year-old female past medical history significant for type 2 diabetes that presented to the emergency room with vague back pain and abdominal pain. Patient states she is continues to feel better. Back pain improved. Left flank pain resolved. Abdominal pain resolved. No nausea or vomiting. No headaches or dizziness. No chest pain or shortness of breath. No fevers or chills. No dysuria. No diarrhea or constipation. Physical exam: General: Awake and alert lying in bed in no acute distress HEENT: Normocephalic atraumatic. Extra ocular muscles intact. Pupils equal and reactive. No scleral icterus. Oropharynx is pink and moist. No pharyngeal erythema or exudate appreciated. Cardiovascular: Normal rhythm. Normal S1, S2. No murmurs, rubs, or gallops appreciated Pulmonary: Normal respiratory effort. No rhonchi, rales or wheezing appreciated. Gastrointestinal: Soft, nondistended. Nontender. Positive bowel sounds all 4 quadrants, no guarding. Musculoskeletal: Moves all extremities, no calf tenderness. No edema appreciated. No CVA tenderness. No paraspinal muscle tenderness Central nervous system: AAOx3. CN2-12 grossly intact. 5/5 muscle strength all extremities. Dermatologic: Skin warm and dry. Assessment and plan: Patient is a 47-year-old female past medical history significant for type 2 diabetes that presented to the emergency room with vague back pain and abdominal pain. 1. Gram negatives bacteremia. Urine and blood cultures positive for Escherichia coli. Continue Rocephin. Repeat blood cultures and urine cultures with no growth. ID following, recommendations appreciated. Abdominal ultrasound on 03/07/2018 per radiology showed 3.8 cm echogenic mass in right lobe of liver, d iffusely increased cortical echogenicity of the right kidney, no hydronephrosis. CT abdomen and pelvis on 03/07/2018 per radiologist showed no radiodense urolithiasis bilaterally, no moderate to prominent hydronephrosis bilaterally, 4.2 likely benign hemangioma identified at the dome of the liver somewhat larger in the interval, limited pelvic fluid suspected of uncertain etiology, minimal bilateral pleural effusions identified. 2. UTI. Urine culture positive for Escherichia coli. Continue Rocephin. Repeat blood culture with no growth. 3. DM 2 with hyperglycemia. Hyperglycemia improved. Hemoglobin A1c 15.4. Endocrinology following, recommendations appreciated. Hyperglycemia improved. Continue Levemir 20 units at bedtime. Continue Humalog 8 units before meals. Continue insulin sliding scale. Continue to monitor Accu-Cheks. 4. Back pain and flank pain. Resolving. Continue Flexeril and naproxen. 5. Anemia. H&H stable. Continue to monitor. 6. Hypokalemia. Replace potassium. Follow up repeat labs in a.m. Case discussed in detail with the patient regarding current diagnosis and treatment plan. All questions answered.
[2018-03-10 15:50] LABS: URINE BACTERIA NEG (NEG); URINE RBC 0 - 2 /hpf (0-2); URINE WBC 0 - 2 /hpf (0-6)
[2018-03-10] MEDS: Insulin Detemir 100 units/ml Vial (Levemir) SC SCH (21:42)
--- NOTE | 2018-03-11 04:12 | PN ---
DATE: 03/10/2018 LOCATION: Room 566 SUBJECTIVE: This is a 47-year-old female with recent uncontrolled type 2 insulin-requiring diabetes presenting here with marked hyperglycemic accelerations and is now being followed closely for metabolic management. Her glycemic levels are fluctuating, but much improved at this time and the glucose levels today have ranged from 110-127 and 157 mg/dL. LABORATORY DATA: Her chemistry showed a BUN of 19, sodium 138, potassium 3.2, chloride 104, CO2 26, glucose 96 and creatinine 0.8. ASSESSMENT AND PLAN: So at this time, we will continue the same basal and bolus insulin regimen to allow for dose equilibration and keep her on the Humalog given as 8 units subcu three times a day before meals as ordered. We will also continue the modified and lower basal insulin given as Levemir at 20 units subcu at bedtime daily as given. We will continue the low-dose correction scale using NovoLog insulin as given. We will follow and advise accordingly. Yaz Brunner MD
[2018-03-11] MEDS: Insulin Lispro 1 UNITS/0.01 ML SC SCH ×2 (09:16→10:59)
[2018-03-11] MEDS: Insulin Lispro (humaLOG) LOW Coverage SC SCH ×2 (09:16→10:59)
[2018-03-11] MEDS: cefTRIAXone 1 gm 1 GM/100 ML BAG IVPB SCH (09:29)
[2018-03-11] MEDS: Naproxen 550 mg Tab PO SCH (09:29)
[2018-03-11 11:50] LABS: BASO # 0.05 K/mm3 (0.0-2.0); BASO % 0.5 % (0.0-3.0); EOS # 0.5 (0.0-0.7); EOS % 5.3 % (1.5-5.0); GRAN # 5.21 (1.4-6.5); GRAN % 57.3 % (50.0-68.0); HEMOGLOBIN 10.7 g/dL (12.0-16.0); LYMPH % 32.4 % (22.0-35.0); MEAN CELL VOLUME 85.8 fl (80.0-105.0); MEAN CORPUSCULAR HEMOGLOBIN 28.2 pg (25.0-35.0); MEAN CORPUSCULAR HGB CONC 32.9 g/dl (31.0-37.0); MEAN PLATELET VOLUME 9.4 fl (7.0-11.0); MONO # 0.4 (0.1-0.6); MONO % 4.5 % (1.0-6.0); RBC 3.79 10^6/uL (3.5-6.1); RED CELL DISTRIBUTION WIDTH 12.5 % (11.5-14.5); WHITE BLOOD COUNT 9.1 10^3/uL (4.5-11.0)
[2018-03-11 12:02] LABS: ALB/GLOB RATIO 0.8 (1.1-1.8); ALBUMIN 2.9 g/dL (3.0-4.8); ALT/SGPT 47 U/L (7-56); AST/SGOT 48 U/L (14-36); BLOOD UREA NITROGEN 17 mg/dL (7-21); CALCIUM 9.1 mg/dL (8.4-10.5); GFR NON-AFRICAN AMERICAN > 60
[2018-03-11 14:32] VITALS: BP 156/97; PULSE 111; RESP 18; TEMP 98.9; O2SAT 98
--- NOTE | 2018-03-11 16:40 | CP.PCM.PN ---
Subjective - Date & Time of Evaluation Date of Evaluation: 03/11/18 Time of Evaluation: 12:00 - Subjective Subjective: Infectious Disease Follow Up: March 11, 2018 47 yo female with presentation of vague back and abdominal pain for 2 days prior to admission. The patient was found to have gram negative pratima in blood and urin e cultures. Pateint with bacteremia and UTI with gram negative rods. Potenitially E. Coli. On Rocephin at this time. Patient states mild improvement. No fevers or leukocytosis since hospitalization started. She has never experienced this type of pain before. She had rated the pain up to 10 out of 10 with pain being a 7 on initial admission. Confirmed E. coli growth. Overall, the patient is feeling better. Able to tolerate solid foods. Pain significantly decreased. Objective - Vital Signs/Intake and Output Vital Signs (last 24 hours): Temp Pulse Resp BP Pulse Ox 98.9 F 111 H 18 156/97 H 98 03/11/18 14:00 03/11/18 14:00 03/11/18 14:00 03/11/18 14:00 03/11/18 14:00 - Labs Labs: 03/11/18 11:40 03/11/18 11:40 - Constitutional Appears: Non-toxic, No Acute Distress, Chronically Ill - Head Exam Head Exam: ATRAUMATIC, NORMOCEPHALIC - Eye Exam Eye Exam: EOMI, PERRL Pupil Exam: NORMAL ACCOMODATION, PERRL - ENT Exam ENT Exam: Mucous Membranes Moist, Normal External Ear Exam, TM's Normal Bilaterally - Neck Exam Neck Exam: Full ROM, Normal Inspection - Respiratory Exam Respiratory Exam: Clear to Ausculation Bilateral, NORMAL BREATHING PATTERN. absent: Rales, Rhonchi, Wheezes - GI/Abdominal Exam GI & Abdominal Exam: Soft, Normal Bowel Sounds. absent: Distended, Tenderness - Extremities Exam Extremities Exam: Full ROM, Normal Inspection - Neurological Exam Neurological Exam: Alert, Awake, CN II-XII Intact, Oriented x3 - Psychiatric Exam Psychiatric exam: Normal Affect, Normal Mood - Skin Skin Exam: Intact, Normal Color Assessment and Plan - Assessment and Plan (Free Text) Assessment: 47 yo female with gram negative pratima bacteremia and UTI. Currently on Rocephin. Afebrile and without Leukocytosis. Showing improvement. E. coli in cultures. Can consider at least 14 days of antibiotics. Can consider switch to oral Keflex 500mg TID for 14 days on discharge. Awaiting identification at the very least. Supportive care. Thank you for allowing me to participate in the care of the patient, we will follow with you.
--- NOTE | 2018-03-11 17:46 | CP.PCM.DIS ---
<Keith Sprague - Last Filed: 03/11/18 18:01> Provider - Provider Date of Admission: 03/09/18 08:08 Attending physician: Verónica Keller DO Primary care physician: Genoveva Hill MD Consults: ID: Dr. Hahn, Endocrine: Dr. Brunner Time Spent in preparation of Discharge (in minutes): 45 Diagnosis - Discharge Diagnosis (1) Hyperglycemia due to type 2 diabetes mellitus Status: Chronic (2) Pyelonephritis Status: Acute Hospital Course - Lab Results Lab Results: Micro Results 03/08/18 21:16 Blood-Venous Blood Culture - Preliminary NO GROWTH AFTER 48 HOURS 03/08/18 21:16 Blood-Venous Blood Culture - Preliminary NO GROWTH AFTER 48 HOURS 03/08/18 18:07 Urine Urine Culture - Final No Growth (<1,000 CFU/ML) 03/07/18 02:51 Urine,Clean Catch Urine Culture - Final Escherichia Coli 03/07/18 04:50 Blood Blood Culture - Final Escherichia Coli 03/07/18 04:50 Blood Gram Stain - Final 03/07/18 04:50 Blood Blood Culture - Final Escherichia Coli 03/07/18 04:50 Blood Gram Stain - Final Most Recent Lab Values WBC 9.1 10^3/uL (4.5-11.0) 03/11/18 11:40 RBC 3.79 10^6/uL (3.5-6.1) 03/11/18 11:40 Hgb 10.7 g/dL (12.0-16.0) L 03/11/18 11:40 Hct 32.5 % (36.0-48.0) L 03/11/18 11:40 MCV 85.8 fl (80.0-105.0) 03/11/18 11:40 MCH 28.2 pg (25.0-35.0) 03/11/18 11:40 MCHC 32.9 g/dl (31.0-37.0) 03/11/18 11:40 RDW 12.5 % (11.5-14.5) 03/11/18 11:40 Plt Count 606 10^3/uL (120.0-450.0) H 03/11/18 11:40 MPV 9.4 fl (7.0-11.0) 03/11/18 11:40 Gran % 57.3 % (50.0-68.0) 03/11/18 11:40 Lymph % (Auto) 32.4 % (22.0-35.0) 03/11/18 11:40 Page % (Auto) 4.5 % (1.0-6.0) 03/11/18 11:40 Eos % (Auto) 5.3 % (1.5-5.0) H 03/11/18 11:40 Baso % (Auto) 0.5 % (0.0-3.0) 03/11/18 11:40 Gran # 5.21 (1.4-6.5) 03/11/18 11:40 Lymph # (Auto) 3.0 (1.2-3.4) 03/11/18 11:40 Page # (Auto) 0.4 (0.1-0.6) 03/11/18 11:40 Eos # (Auto) 0.5 (0.0-0.7) 03/11/18 11:40 Baso # (Auto) 0.05 K/mm3 (0.0-2.0) 03/11/18 11:40 Sodium 138 mmol/L (132-148) 03/11/18 11:40 Potassium 4.1 mmol/L (3.6-5.0) 03/11/18 11:40 Chloride 103 mmol/L (98-107) 03/11/18 11:40 Carbon Dioxide 30 mmol/L (21-33) 03/11/18 11:40 Anion Gap 9 (10-20) L 03/11/18 11:40 BUN 17 mg/dL (7-21) 03/11/18 11:40 Creatinine 0.7 mg/dl (0.7-1.2) 03/11/18 11:40 Est GFR ( Amer) > 60 03/11/18 11:40 Est GFR (Non-Af Amer) > 60 03/11/18 11:40 POC Glucose (mg/dL) 127 mg/dL (65-110) H 03/10/18 20:56 Random Glucose 122 mg/dL (70-110) H 03/11/18 11:40 Hemoglobin A1c 15.4 % (4.2-6.5) H 03/07/18 02:51 Calcium 9.1 mg/dL (8.4-10.5) 03/11/18 11:40 Phosphorus 3.1 mg/dL (2.5-4.5) 03/08/18 07:00 Magnesium 1.5 mg/dL (1.7-2.2) L 03/08/18 07:00 Iron 33 ug/dL (45-180) L 03/07/18 02:51 TIBC 207 ug/dL (265-497) L 03/07/18 02:51 % Saturation 16 % (20-55) L 03/07/18 02:51 Transferrin 163.39 mg/dL (206-381) L 03/07/18 02:51 Ferritin 67.0 ng/mL 03/07/18 02:51 Total Bilirubin 0.1 mg/dL (0.2-1.3) L 03/11/18 11:40 AST 48 U/L (14-36) H 03/11/18 11:40 ALT 47 U/L (7-56) 03/11/18 11:40 Alkaline Phosphatase 316 U/L (38-126) H 03/11/18 11:40 Total Creatine Kinase 44 U/L (35-230) 03/07/18 02:51 Total Protein 6.5 g/dL (5.8-8.3) 03/11/18 11:40 Albumin 2.9 g/dL (3.0-4.8) L 03/11/18 11:40 Globulin 3.6 gm/dL 03/11/18 11:40 Albumin/Globulin Ratio 0.8 (1.1-1.8) L 03/11/18 11:40 Triglycerides 196 mg/dL (35-160) H 03/07/18 02:51 Cholesterol 176 mg/dL (130-200) 03/07/18 02:51 LDL Cholesterol Direct 107 mg/dL (0-129) 03/07/18 02:51 HDL Cholesterol 38 mg/dL (29-60) 03/07/18 02:51 Lipase 89 U/L (23-300) 03/07/18 02:51 Procalcitonin 0.99 NG/ML (0.19-0.49) H 03/07/18 02:51 Urine Color Yellow (YELLOW) 03/10/18 15:00 Urine Appearance Slight-cloudy (CLEAR) 03/10/18 15:00 Urine pH 6.5 (4.7-8.0) 03/10/18 15:00 Ur Specific [place] 1.020 (1.005-1.035) 03/10/18 15:00 Urine Protein 100 mg/dL (<30 mg/dL) H 03/10/18 15:00 Urine Glucose (UA) 100 mg/dL (NEGATIVE) H 03/10/18 15:00 Urine Ketones Negative mg/dL (NEGATIVE) 03/10/18 15:00 Urine Blood Trace-intact (NEGATIVE) H 03/10/18 15:00 Urine Nitrate Negative (NEGATIVE) 03/10/18 15:00 Urine Bilirubin Negative (NEGATIVE) 03/10/18 15:00 Urine Urobilinogen 0.2 E.U./dL (<1 E.U./dL) 03/10/18 15:00 Ur Leukocyte Esterase Negative Levy/uL (NEGATIVE) 03/10/18 15:00 Urine RBC 0 - 2 /hpf (0-2) 03/10/18 15:00 Urine WBC 0 - 2 /hpf (0-6) 03/10/18 15:00 Ur Epithelial Cells None /hpf (0-5) 03/10/18 15:00 Urine Bacteria Neg (NEG) 03/10/18 15:00 Influenza Typ A,B (EIA) Negative for flu a/b (NEGATIVE) 03/07/18 03:15 - Hospital Course Hospital Course: Keith Sprague DO, PGY-1 Hospitalist Discharge Summary for Dr. Melvin Keller Ms. Gerard is a 47 yo F with PMH of uncontrolled DM2 and non-compliance presented to ED with vague symptoms of low back and flank pain that had been worsening over the past two days prior. She stated that the back pain was sharp, severe, 10/10, radiating to the right flank. UA was performed with positive nitrite and 25-30 WBC in urine. She was subsequently admitted for pain control and treatment for presumed pyelonephritis. She was afebrile and had a mild leukocytosis on admission. While in the hospital, Ms. Gerard was treated with IV abx consisting of rocephin. She also had persistent hyperglycemia requiring high ISS coverage. Hgb A1c measured on admission was 15.6, c/w hx of non-compliance with insulin regimens. Endocrinology was subsequently consulted and placed on additional insulin. Patient was cleared to be discharged initially but blood cx returned positive for GNR. She was kept in hospital for additional administration of IV rocephin. Repeat blood cx were drawn after additional rocephin treatment and are negative to date. Urine cx performed on the same day is also negative to date. Ms. Gerard is discharged on 14 days of 500 mg TID keflex for treatment of pyelonephritis per ID recs. She was also agreeable to restarting a more complete insulin regimen with both short acting insulin prior to meals and basal long- acting insulin at bedtime c/w endocrinology recs. She was educated on how and when to take insulin in detail and was given detailed instructions as stated below. She was agreeable to f/u with her PMD and stated she has an appointment on Tuesday. All questions were answered. Discharge Exam - Head Exam Head Exam: ATRAUMATIC, NORMOCEPHALIC - Eye Exam Eye Exam: EOMI, Normal appearance, PERRL Pupil Exam: NORMAL ACCOMODATION - ENT Exam ENT Exam: Mucous Membranes Moist - Neck Exam Neck exam: Full Rom, Normal Inspection - Respiratory Exam Respiratory Exam: Clear to PA & Lateral, NORMAL BREATHING PATTERN. absent: Rales, Rhonchi, Wheezes - Cardiovascular Exam Cardiovascular Exam: REGULAR RHYTHM, RRR, +S1, +S2. absent: Diastolic murmur, Gallop, Rubs, Systolic Murmur - GI/Abdominal Exam GI & Abdominal Exam: Normal Bowel Sounds, Soft. absent: Guarding - Extremities Exam Extremities exam: full ROM, normal inspection - Back Exam Back exam: NORMAL INSPECTION. absent: CVA tenderness (L), CVA tenderness (R) - Neurological Exam Neurological exam: Alert, Oriented x3 - Psychiatric Exam Psychiatric exam: Normal Affect, Normal Mood - Skin Skin Exam: Dry, Intact, Warm Discharge Plan - Discharge Medications Prescriptions: Cephalexin [cephalexin] 500 mg PO TID #42 cap RX: Hydrochlorothiazide [Microzide] 12.5 mg PO DAILY 14 Days #14 capsule RX: Lisinopril [Zestril] 10 mg PO DAILY 14 Days #14 tab - Follow Up Plan Condition: STABLE Disposition: HOME/ ROUTINE Instructions: Diabetes Type 2 (DC), Diabetes and Diet, Kidney Infection (DC), Urinary Tract Infection in Women (DC), Urinary Tract Infection in Men (DC), Dysuria (GEN) Additional Instructions: Please follow up with your primary care doctor, Dr. Hill, within 3-5 days of discharge. Please discuss all medical issues addressed and any new medications that you have been started on during this admission. Be sure to mention your new insulin regimen. Please take your antibiotic, Keflex, as prescribed three times per day for a total of 14 days. You have been started on two types of insulin. One is long acting, Levemir (Insulin Detemir), and 20 units will need to be taken at bedtime every night. The other is a short acting, Humalog (Insulin Lispro) and 6 units will need to be taken before meals. It is important to take your blood sugar before each meal and before bed each night to ensure that you are not giving yourself insulin if your blood sugar is too low. Should you skip a meal OR find that your blood sugar is lower than 80, please do not give yourself any of your short acting insulin, Humalog (Insulin Lispro). If you have any further questions about your insulin, please ask your pharmacist for consultation on these when you fill your prescriptions. We have stopped your other oral diabetes medicines because your blood sugar will be controlled with your insulin. Please do not take these medications unless restarted by a physician. Please continue to take your blood pressure medications as prescribed by your primary care doctor. You have been given a two week supply of hydrochlorothiazide and lisinopril and will need to get these refilled by your primary care doctor. If your symptoms return, please seek emergency medical attention immediately at your nearest emergency room. Referrals: Genoveva Hill MD [Primary Care Provider] - <Verónica Keller - Last Filed: 03/13/18 16:53> Provider - Provider Date of Admission: 03/09/18 08:08 Attending physician: Verónica Keller DO Primary care physician: Genoveva Hill MD Hospital Course - Lab Results Lab Results: Micro Results 03/08/18 21:16 Blood-Venous Blood Culture - Preliminary NO GROWTH AFTER 4 DAYS 03/08/18 21:16 Blood-Venous Blood Culture - Preliminary NO GROWTH AFTER 4 DAYS 03/08/18 18:07 Urine Urine Culture - Final No Growth (<1,000 CFU/ML) 03/07/18 02:51 Urine,Clean Catch Urine Culture - Final Escherichia Coli 03/07/18 04:50 Blood Blood Culture - Final Escherichia Coli 03/07/18 04:50 Blood Gram Stain - Final 03/07/18 04:50 Blood Blood Culture - Final Escherichia Coli 03/07/18 04:50 Blood Gram Stain - Final Most Recent Lab Values WBC 9.1 10^3/uL (4.5-11.0) 03/11/18 11:40 RBC 3.79 10^6/uL (3.5-6.1) 03/11/18 11:40 Hgb 10.7 g/dL (12.0-16.0) L 03/11/18 11:40 Hct 32.5 % (36.0-48.0) L 03/11/18 11:40 MCV 85.8 fl (80.0-105.0) 03/11/18 11:40 MCH 28.2 pg (25.0-35.0) 03/11/18 11:40 MCHC 32.9 g/dl (31.0-37.0) 03/11/18 11:40 RDW 12.5 % (11.5-14.5) 03/11/18 11:40 Plt Count 606 10^3/uL (120.0-450.0) H 03/11/18 11:40 MPV 9.4 fl (7.0-11.0) 03/11/18 11:40 Gran % 57.3 % (50.0-68.0) 03/11/18 11:40 Lymph % (Auto) 32.4 % (22.0-35.0) 03/11/18 11:40 Page % (Auto) 4.5 % (1.0-6.0) 03/11/18 11:40 Eos % (Auto) 5.3 % (1.5-5.0) H 03/11/18 11:40 Baso % (Auto) 0.5 % (0.0-3.0) 03/11/18 11:40 Gran # 5.21 (1.4-6.5) 03/11/18 11:40 Lymph # (Auto) 3.0 (1.2-3.4) 03/11/18 11:40 Page # (Auto) 0.4 (0.1-0.6) 03/11/18 11:40 Eos # (Auto) 0.5 (0.0-0.7) 03/11/18 11:40 Baso # (Auto) 0.05 K/mm3 (0.0-2.0) 03/11/18 11:40 Sodium 138 mmol/L (132-148) 03/11/18 11:40 Potassium 4.1 mmol/L (3.6-5.0) 03/11/18 11:40 Chloride 103 mmol/L (98-107) 03/11/18 11:40 Carbon Dioxide 30 mmol/L (21-33) 03/11/18 11:40 Anion Gap 9 (10-20) L 03/11/18 11:40 BUN 17 mg/dL (7-21) 03/11/18 11:40 Creatinine 0.7 mg/dl (0.7-1.2) 03/11/18 11:40 Est GFR ( Amer) > 60 03/11/18 11:40 Est GFR (Non-Af Amer) > 60 03/11/18 11:40 POC Glucose (mg/dL) 70 mg/dL (65-110) 03/11/18 10:56 Random Glucose 122 mg/dL (70-110) H 03/11/18 11:40 Hemoglobin A1c 15.4 % (4.2-6.5) H 03/07/18 02:51 Calcium 9.1 mg/dL (8.4-10.5) 03/11/18 11:40 Phosphorus 3.1 mg/dL (2.5-4.5) 03/08/18 07:00 Magnesium 1.5 mg/dL (1.7-2.2) L 03/08/18 07:00 Iron 33 ug/dL (45-180) L 03/07/18 02:51 TIBC 207 ug/dL (265-497) L 03/07/18 02:51 % Saturation 16 % (20-55) L 03/07/18 02:51 Transferrin 163.39 mg/dL (206-381) L 03/07/18 02:51 Ferritin 67.0 ng/mL 03/07/18 02:51 Total Bilirubin 0.1 mg/dL (0.2-1.3) L 03/11/18 11:40 AST 48 U/L (14-36) H 03/11/18 11:40 ALT 47 U/L (7-56) 03/11/18 11:40 Alkaline Phosphatase 316 U/L (38-126) H 03/11/18 11:40 Total Creatine Kinase 44 U/L (35-230) 03/07/18 02:51 Total Protein 6.5 g/dL (5.8-8.3) 03/11/18 11:40 Albumin 2.9 g/dL (3.0-4.8) L 03/11/18 11:40 Globulin 3.6 gm/dL 03/11/18 11:40 Albumin/Globulin Ratio 0.8 (1.1-1.8) L 03/11/18 11:40 Triglycerides 196 mg/dL (35-160) H 03/07/18 02:51 Cholesterol 176 mg/dL (130-200) 03/07/18 02:51 LDL Cholesterol Direct 107 mg/dL (0-129) 03/07/18 02:51 HDL Cholesterol 38 mg/dL (29-60) 03/07/18 02:51 Lipase 89 U/L (23-300) 03/07/18 02:51 Procalcitonin 0.99 NG/ML (0.19-0.49) H 03/07/18 02:51 Urine Color Yellow (YELLOW) 03/10/18 15:00 Urine Appearance Slight-cloudy (CLEAR) 03/10/18 15:00 Urine pH 6.5 (4.7-8.0) 03/10/18 15:00 Ur Specific [place] 1.020 (1.005-1.035) 03/10/18 15:00 Urine Protein 100 mg/dL (<30 mg/dL) H 03/10/18 15:00 Urine Glucose (UA) 100 mg/dL (NEGATIVE) H 03/10/18 15:00 Urine Ketones Negative mg/dL (NEGATIVE) 03/10/18 15:00 Urine Blood Trace-intact (NEGATIVE) H 03/10/18 15:00 Urine Nitrate Negative (NEGATIVE) 03/10/18 15:00 Urine Bilirubin Negative (NEGATIVE) 03/10/18 15:00 Urine Urobilinogen 0.2 E.U./dL (<1 E.U./dL) 03/10/18 15:00 Ur Leukocyte Esterase Negative Levy/uL (NEGATIVE) 03/10/18 15:00 Urine RBC 0 - 2 /hpf (0-2) 03/10/18 15:00 Urine WBC 0 - 2 /hpf (0-6) 03/10/18 15:00 Ur Epithelial Cells None /hpf (0-5) 03/10/18 15:00 Urine Bacteria Neg (NEG) 03/10/18 15:00 Influenza Typ A,B (EIA) Negative for flu a/b (NEGATIVE) 03/07/18 03:15 Attending/Attestation - Attestation I have personally seen and examined this patient.: Yes I have fully participated in the care of the patient.: Yes I have reviewed all pertinent clinical information, including history, physical exam and plan: Yes Notes (Text): Patient seen and examined by me with resident at 11:10:AM on 03/11/18. Case including discharge plan discussed with resident. Agree with above with following additions/corrections. Patient is a 47-year-old female past medical history significant for type 2 diabetes that presented to the emergency room with vague back pain and abdominal pain. Please see H&P for full details. Patient was admitted with left flank pain, anemia, hypokalemia, bacteriuria, and DM2. Patient was started on Rocephin. Abdominal ultrasound on 03/07/2018 per radiology showed 3.8 cm echogenic mass in right lobe of liver, diffusely increased cortical echogenicity of the right kidney, no hydronephrosis. CT abdomen and pelvis on 03/07/2018 per radiologist showed no radiodense urolithiasis bilaterally, no moderate to prominent hydronephrosis bilaterally, 4.2 likely benign hemangioma identified at the dome of the liver somewhat larger in the interval, limited pelvic fluid suspected of uncertain etiology, minimal bilateral pleural effusions identified. Urine and blood cultures were positive for E.Coli. ID was consulted. Patient was continued on Rocephin. Repeat blood and urine cultures with no growth. Patient was cleared for discharge by ID with 14 days of Keflex. Patient was also found to have DM2 with hyperglycemia. HgbA1C was 15.4. Planer Setup Operator was consulted. Patients insulin was adjusted. Patient was not taking insulin at home. She states I dont like insulin but I will take this new insulin. Patient stated that she was previously taking insulin at home but stopped. Patient agreed to use the insulin upon discharge. Patient was treated with Flexeril and Naproxen for the back and flank pain which resolved. Patient was also found to have anemia. H&H remained stable. Patient was also found to have hypokalemia and was given oral replacement. Patient was feeling much better. Symptoms resolved. Patient was cleared for discharge by all consultants. Patient was discharged home. On day of discharge, patient stated she was feeling much better. Body aches resolved. Patient stated back and flank pain also resolved. No nausea, vomiting, or abdominal pain. No headaches or dizziness. No lightheadedness. No fevers or chills. No dysuria. No diarrhea or constipation. Patient was ambulating with no issues. Tolerating diet well. Physical exam: General: Awake and alert lying in bed in no acute distress HEENT: Normocephalic atraumatic. Extraocular muscles intact. Pupils equal and reactive. No scleral icterus. Oropharynx is pink and moist. No pharyngeal erythema or exudate appreciated. Neck is supple. Cardiovascular: Normal rhythm. Normal S1, S2. No murmurs, rubs, or gallops appreciated Pulmonary: Normal respiratory effort. No rhonchi, rales or wheezing appreciated. Gastrointestinal: Soft, nondistended. Nontender. Positive bowel sounds all 4 quadrants, no guarding. Musculoskeletal: Moves all extremities, no calf tenderness. No edema appreciated. No CVA tenderness. No paraspinal muscle tenderness Central nervous system: AAOx3. CN2-12 grossly intact. 5/5 muscle strength all extremities. Dermatologic: Skin warm and dry. Please see chart for full details. Follow up instructions: Patient to follow up with primary care doctor within 3- 5 days. Patient to complete 14 days of antibiotics. Patient to take insulin as prescribed. Patient to stop her oral diabetes medications. All instructions explained to patient in detail. Patient both understands and agrees to all instructions. Written instructions also given. Time spent in discharging the patient including chart review, medication reconciliation, discussion with the patient, center medical director, consultants, and nursing staff was greater than 40 minutes.
--- NOTE | 2018-03-11 18:02 | PN ---
DATE: 03/11/2018 ENDOCRINOLOGY FOLLOWUP NOTE LOCATION: Room 566. SUBJECTIVE: This is a 47-year-old female with recent uncontrolled type 2 insulin-requiring diabetes, now being followed closely for metabolic management. Her glycemic levels are fluctuating, but improved and the glucose values today have ranged from 110-127 and 157 mg/dL. Her chemistry showed a BUN of 17, sodium 138, potassium 4.1, chloride 103, CO2 30, glucose 122 and creatinine 0.7. So at this time, we will continue the same basal and bolus insulin regimen as ordered with Humalog given as 6 units subcu t.i.d. before meals as ordered. We will also continue the Levemir given as 20 units subcu at bedtime daily as given. We will titrate incrementally as indicated to optimize metabolic control. We will follow and advise accordingly. Yaz Brunner MD
== END 2018-03-11 15:14 | disposition home or self-care (01) | DRG 566 ==
LOC: ED 01:23 → ERH 04:02 → 5RNO 06:37 → OBSVTOIN 03-09 08:08
PROVIDERS: ADMIT Hospitalist; ATTEND Hospitalist
DX: E11.65 Type 2 diabetes mellitus with hyperglycemia (principal); R78.81 Bacteremia; N10 Acute pyelonephritis; E87.6 Hypokalemia; B96.20 Unspecified Escherichia coli [E. coli] as the cause of diseases classified elsewhere; D18.03 Hemangioma of intra-abdominal structures; D50.9 Iron deficiency anemia, unspecified; E78.5 Hyperlipidemia, unspecified; I10 Essential (primary) hypertension; Z79.4 Long term (current) use of insulin; Z91.14 Patient's other noncompliance with medication regimen